=== PATIENT | male | born 1975 | race Two or more races ===

== ENCOUNTER 2020-08-02 08:46 | Outpatient (REF) | payer OTHER, SELFPAY ==
[2020-08-02 10:13] LABS: MANUAL DIFF FLAG NO
[2020-08-02 10:17] LABS: Basophils Percent Auto 0.5 % (0-2); Eosinophils Absolute Auto 0.6 X10*3/uL (0.0-0.4); Eosinophils Percent Auto 8.8 % (0-4); Hematocrit 43.6 % (42-52); Hemoglobin 14.2 g/dl (14.0-18.0); Imm Gran Abs Auto 0.01 X10*3/uL (0.00-0.03); Imm Gran Pct Auto 0.2 % (0.0-0.4); Lymphocytes Absolute Auto 2.1 X10*3/uL (1.2-4.9); Lymphocytes Percent Auto 31.3 % (20-40); Mean Corpuscular HGB Conc 32.6 g/dl (31.0-36.0); Mean Corpuscular Hemoglobin 27.6 pg (27.0-33.0); Mean Corpuscular Volume 84.8 fL (80-98); Mean Platelet Volume 10.5 fL (9.4-12.4); Monocytes Absolute Auto 0.4 X10*3/uL (0.1-1.2); Monocytes Percent Auto 6.4 % (2-11); Neutrophils Absolute Auto 3.5 X10*3/uL (2.0-8.3); Neutrophils Percent Auto 52.8 % (45-73); Platelet Count 278 X10*3/uL (160-400); Red Blood Count 5.14 X10*6/uL (4.60-5.80); Red Cell Distribution Width 12.8 % (11.0-16.0); White Blood Count 6.6 X10*3/uL (4.8-10.8)
[2020-08-02 10:42] LABS: Alanine Aminotransferase 22 U/L (0-40); Albumin Level 4.3 g/dL (3.5-5.0); Alkaline Phosphatase 80 U/L (39-117); Anion Gap 11 (12-20); Aspartate Amino Transferase 19 U/L (5-37); Bilirubin Total 0.6 mg/dL (0.0-1.0); Blood Urea Nitrogen 17 mg/dL (9-16); Calcium 9.3 mg/dL (8.4-10.2); Carbon Dioxide 29 mmol/L (22-29); Chloride 104 mmol/L (96-108); Cholesterol 208 mg/dL; Estimated Glomerular Filt Rate > 60; Glucose Fasting 98 mg/dL (60-99); HDL Cholesterol 45 mg/dL; LDL Cholesterol Calculated 139 mg/dl; Potassium 4.1 mmol/L (3.3-5.1); Sodium 140 mmol/L (135-145); Total Protein 7.5 g/dL (6.5-8.0); Triglycerides 120 mg/dL
[2020-08-02 10:53] LABS: Thyroid Stimulating Hormone 1.23 uIU/mL (0.32-4.0)
[2020-08-05 14:17] LABS: Vitamin D 25-OH, D2 <4 ng/mL; Vitamin D 25-OH, D3 15 ng/mL; Vitamin D 25-OH, Total 15 ng/mL (30-100)
== END 2020-08-02 08:47 | disposition home or self-care (01) ==
LOC: HO.LAB 08:46
PROVIDERS: PCP Internal Medicine; Visit Provider Internal Medicine
DX: D64.9 Anemia, unspecified (principal); E66.3 Overweight; E78.5 Hyperlipidemia, unspecified; E55.9 Vitamin D deficiency, unspecified
CPT/HCPCS: 36415; 80053; 80061; 82306; 84443; 85025

== ENCOUNTER 2020-12-25 11:11 | Outpatient (REF) | payer OTHER, SELFPAY ==
[2020-12-25 13:21] LABS: Appearance Urine CLEAR; Color Urine YELLOW; Glucose Urine UA NEG (NEG); Leukocyte Esterase Urine NEG (NEG); Nitrite Urine NEG (NEG); Specific Gravity - Urine 1.025 (1.005-1.025); Urine Blood NEG (NEG); Urine Ketones NEG (NEG); Urine Protein NEG (NEG-TRACE)
== END 2020-12-25 11:12 | disposition home or self-care (01) ==
LOC: HO.LAB 11:11
PROVIDERS: PCP Internal Medicine; Visit Provider Physician Assistant
DX: R31.9 Hematuria, unspecified (principal)
CPT/HCPCS: 81003

== ENCOUNTER 2021-05-14 23:48 | Emergency (ER) | payer OTHER, SELFPAY ==
--- NOTE | ~2021-05-14 | XR_ITS ---
EXAMINATION: XR HAND, RIGHT CLINICAL INFORMATION: Injury COMPARISON: None TECHNIQUE: Four views of the right hand. FINDINGS: The bones and soft tissues are normal. No fracture. Alignment is anatomic. Joint spaces are maintained. No erosions or soft tissue calcifications. XR/XR hand RT min 3V IMPRESSION: Normal right hand.
[2021-05-14 23:53] VITALS: BP 146/85; PULSE 66; RESP 18; TEMP 36.5; O2SAT 97; BMI 32.5
--- NOTE | 2021-05-15 00:32 | ED_ITS ---
HPI - Extremity Problem General Chief complaint: Extremity Injury, Upper Stated complaint: hand pain? Time Seen by Provider: 05/15/21 00:32 Source: patient Mode of arrival: ambulatory Limitations: no limitations History of Present Illness HPI Narrative: This is a 46-year-old male presenting to the emergency department with complaints of right hand pain. Patient tells me that 4 days ago he was cutting wood he got a sliver would into the webspace between his 1st and 2nd digit. Patient tells me that this liver avoid out however since then it has been swelling. He tells me is having a hard time making a fist on his right hand. And hurts to do opposition of right fingers. He does not feel like there is a foreign body in there. He denies chest pain, shortness of breath, nausea, vomiting, fevers, chills. Patient is right-hand dominant. MD Complaint: joint swelling and joint pain Onset (ago): day(s) (4) Pain Consistency: constant Location: right Radiation: none Relieving factors: nothing Exacerbating factors: range of motion Associated symptoms: denies other symptoms Related Data Home Medications Medication Instructions Recorded Confirmed hydroxyzine pamoate 50 mg capsule 50 mg PO BID PRN 06/20/20 09/21/20 sertraline 100 mg tablet 100 mg PO DAILY 06/20/20 09/21/20 Previous Rx's Medication Instructions Recorded albuterol sulfate 90 mcg/actuation 2 puff INHALATION Q6H PRN 30 Days 06/20/20 aerosol inhaler (ProAir HFA) #6.7 g ibuprofen 800 mg tablet 800 mg PO Q8H PRN 30 Days #90 tab 09/03/20 cholecalciferol (vitamin D3) 50 50 mcg PO DAILY 90 Days #90 cap 09/21/20 mcg (2,000 unit) capsule phenazopyridine 200 mg tablet 200 mg PO TID 3 Days #9 tab 12/26/20 (Pyridium) cephalexin 500 mg tablet 500 mg PO Q6H 10 Days #40 tab 05/15/21 doxycycline hyclate 100 mg capsule 100 mg PO BID 10 Days #20 cap 05/15/21 Allergies Allergy/AdvReac Type Severity Reaction Status Date / Time No Known Allergies Allergy Verified 05/14/21 23:53 Review of Systems Review of Systems: Constitutional : No Weight loss, No Fever, No Chills, No Fatigue, No Malaise ENT/Mouth : No sore throat, No Rhinorrhea Eyes: No Eye Pain, No Swelling, No Redness Cardiovascular : No Chest Pain, No SOB, No Dyspnea on Exertion, No Orthopnea, No Edema, No Palpitations Respiratory : No Cough, No Sputum, No Wheezing Gastrointestinal : No Nausea, No Vomiting, No Diarrhea, No Constipation, No abdo john Pain, No Hematochezia, No Melena Genitourinary : No Dysuria, No Urinary Frequency, No Hematuria, Musculoskeletal : + joint pain, No Myalgias, + Joint Swelling Skin : No Skin Lesions, No rash Neuro : No Weakness, No Numbness, No Dizziness, No Headache Psych : No Anxiety/Panic, No Depression All other systems reviewed and are negative Yes all other systems are reviewed and are negative [facility] Past Medical History Attestation statement: The following information was validated with the patient. Source: old records reviewed and nursing notes reviewed Medical History Depression with anxiety Hypovitaminosis D Mild asthma Overweight (BMI 25.0-29.9) Surgical History No pertinent past surgical history Family History Family History Father Prostate cancer Mother Asthma Social History Social History Housing: Apartment Alcohol intake: former Patient Tobacco Use Status: Former Tobacco user Tobacco use type: Cigarette e-Cigarette/Vaping Use: Never Used Second Hand Smoke Exposure: No Advance Directives: No service: No Current occupational status: employed Current occupational exposures/hazards: No Physical Exam Vital Signs: Vital Signs: Last Vital Signs Temp 97.7 F 05/14/21 23:53 Pulse 66 05/14/21 23:53 Resp 18 05/14/21 23:53 BP 146/85 H 05/14/21 23:53 Pulse Ox 97 05/14/21 23:53 BMI result Body Mass Index 32.5 VSS Appearance: Alert.? Oriented X3.? No acute distress.? Head: Normocephalic, atraumatic, no step-offs or deformities Eyes: Pupils equal, round and reactive to light.? ENT: Pharynx normal.? Neck: Normal inspection.? Neck supple.? CVS: Normal heart rate and rhythm.? Pulses normal.? Respiratory: No respiratory distress.? Breath sounds normal.? Abdomen: Soft and nontender.? Skin: Skin warm and dry.? Normal skin color.? Normal skin turgor.? Extremities: No lower extremity edema.? No calf ttp. 5/5 strength to bilateral upper and lower extremities normal range of motion to bilateral wrist. 2+ equal bilateral radial pulses. + pain with range of motion of right fingers, patient cannot do opposition without pain on right side. Erythema and calor noted to the right 1st web space. Unable to palpate a foreign body within the right 1st webspace. Back: No midline tenderness, no C-spine tenderness, full range of motion, no CVA tenderness bilaterally Neuro: Oriented X 3.? No motor deficit.? No sensory deficit. CN 2-12 intact Course Reevaluation(s) Reevaluation #1: X-ray of the right hand within normal limits. Patient will be discharged home on antibiotics. Advised to follow-up with hand surgery. At this time I feel comfortable discharge home. Advised return with new or worsening symptoms. Time: 01:20 Reevaluation #2: Will give tetanus shot. X-ray within normal limits. call to schedule an appoint with Dr. Turner. Comfortable discharge home Time: 01:26 MDM - Extremity (Nontraumatic) MDM Narrative Medical decision making narrative: 0039 46 yo m presents w/ swelling to the right 1st webspace status post getting a sliver of wood into his hand. Patient removed this liver however since then pain and swelling has been present. Physical examination significant for pain with opposition of fingers on right hand. There is also erythema, swelling and calor consistent with cellulitis between the 1st and 2nd digits webspace. No evidence signs of tenosynovitis. Physical examination consistent with cellulitis. Plan at this time is to obtain an x-ray to rule out foreign bodies. Medical Records Attestation: I reviewed the patient's medical records. Lab Data Attestation: I reviewed the patient's lab results. Critical Care Time Critical Care Time Critical Care Time: No Discharge Plan Discharge Clinical Impression: Cellulitis Patient Disposition: Home, Self-Care Instructions: Cellulitis (ED), Warm Compress or Soak (ED) Additional Instructions: Take your medications as prescribed. If you were prescribed antibiotics today, it is important that you take your medication to their entirety, do not skip any doses, do not finish them early. Follow-up with your primary care provider this week. Follow-up with hand surgeon if symptoms do not improve within 3-4 days or if symptoms worsen. Return to the emergency department with new or worsening symptoms. Such as fevers, chills, chest pain, shortness of breath, nausea, vomiting, dizziness, headache, vision changes, lethargy In case of emergency call 911 Prescriptions: New doxycycline hyclate 100 mg capsule 100 mg PO BID 10 Days Qty: 20 0RF cephalexin 500 mg tablet 500 mg PO Q6H 10 Days Qty: 40 0RF No Action ibuprofen 800 mg tablet 800 mg PO Q8H PRN (Reason: pain) 30 Days Qty: 90 1RF phenazopyridine [Pyridium] 200 mg tablet 200 mg PO TID 3 Days Qty: 9 0RF hydroxyzine pamoate 50 mg capsule 50 mg PO BID PRN0RF sertraline 100 mg tablet 100 mg PO DAILY 0RF albuterol sulfate [ProAir HFA] 90 mcg/actuation HFA aerosol inhaler 2 puff inhalation Q6H PRN (Reason: shortness of breath or wheezing) 30 Days Qty: 6.7 6RF cholecalciferol (vitamin D3) 50 mcg (2,000 unit) capsule 50 mcg PO DAILY 90 Days Qty: 90 3RF Referrals: Sania Turner MD [Physician] - 2 days Physician,Unknown J [Primary Care Provider] - 2 days Stand Alone Forms: Work/School Release
[2021-05-15] MEDS: Diphth,Pertus(ACell),Tet Adult 0.5 ML SYRINGE IM (01:52)
== END 2021-05-15 01:55 | disposition home or self-care (01) ==
PROVIDERS: Emergency Provider Internal Medicine
DX: L03.011 Cellulitis of right finger (principal); M25.541 Pain in joints of right hand
CPT/HCPCS: 73130; 90471; 90715; 99283; 99284

== ENCOUNTER 2021-06-05 09:01 | Outpatient (REF) | payer OTHER, SELFPAY ==
[2021-06-05 09:23] LABS: MANUAL DIFF FLAG NO
--- NOTE | 2021-06-05 09:24 | ECG_ITS ---
Test Reason : CHEST PAIN Blood Pressure : / mmHG Vent. Rate : 051 BPM Atrial Rate : 051 BPM P-R Int : 178 ms QRS Dur : 090 ms QT Int : 450 ms P-R-T Axes : 046 044 048 degrees QTc Int : 414 ms Sinus bradycardia Minimal voltage criteria for LVH, may be normal variant ( Sokolow-Desir ) Borderline ECG No previous ECGs available Referred By: Madalyn Oliva Electronically Signed By:RICK MILLAN
[2021-06-05 09:32] LABS: Basophils Percent Auto 0.3 % (0-2); Eosinophils Absolute Auto 0.3 X10*3/uL (0.0-0.4); Eosinophils Percent Auto 3.8 % (0-4); Hematocrit 45.3 % (42.0-52.0); Hemoglobin 14.4 g/dl (14.0-18.0); Imm Gran Abs Auto 0.01 X10*3/uL (0.00-0.03); Imm Gran Pct Auto 0.1 % (0.0-0.4); Lymphocytes Absolute Auto 2.5 X10*3/uL (1.2-4.9); Lymphocytes Percent Auto 35.9 % (20-40); Mean Corpuscular HGB Conc 31.8 g/dl (31.0-36.0); Mean Corpuscular Hemoglobin 27.3 pg (27.0-33.0); Mean Platelet Volume 9.9 fL (9.4-12.4); Monocytes Absolute Auto 0.4 X10*3/uL (0.1-1.2); Monocytes Percent Auto 5.5 % (2-11); Neutrophils Absolute Auto 3.8 x10*3/uL (2.0-8.3); Neutrophils Percent Auto 54.4 % (45-73); Platelet Count 289 X10*3/uL (160-400); Red Blood Count 5.27 X10*6/uL (4.60-5.80); Red Cell Distribution Width 12.6 % (11.0-16.0); White Blood Count 6.9 X10*3/uL (4.8-10.8)
[2021-06-05 09:56] LABS: Alanine Aminotransferase 38 U/L (0-40); Albumin Level 4.2 g/dL (3.5-5.0); Alkaline Phosphatase 78 U/L (39-117); Anion Gap 11 (12-20); Aspartate Amino Transferase 20 U/L (5-37); Bilirubin Total 0.6 mg/dL (0.0-1.0); Blood Urea Nitrogen 16 mg/dL (9-16); Calcium 9.5 mg/dL (8.4-10.2); Carbon Dioxide 30 mmol/L (22-29); Chloride 107 mmol/L (96-108); Cholesterol 178 mg/dL; Estimated Glomerular Filt Rate > 60; Glucose Fasting 103 mg/dL (60-99); HDL Cholesterol 40 mg/dL; LDL Cholesterol Calculated 120 mg/dl; Potassium 4.2 mmol/L (3.3-5.1); Sodium 144 mmol/L (135-145); Total Protein 7.5 g/dL (6.5-8.0); Triglycerides 91 mg/dL
[2021-06-05 10:20] LABS: Thyroid Stimulating Hormone 2.17 uIU/mL (0.32-4.0); Vitamin D 25-OH Total 13.3 ng/mL (>30)
== END 2021-06-05 09:02 | disposition home or self-care (01) ==
LOC: HO.LAB 09:01
PROVIDERS: PCP Internal Medicine; Visit Provider Internal Medicine
DX: Z00.00 Encounter for general adult medical examination without abnormal findings (principal); R07.9 Chest pain, unspecified; J45.30 Mild persistent asthma, uncomplicated; D64.9 Anemia, unspecified; E78.5 Hyperlipidemia, unspecified; E66.9 Obesity, unspecified; E55.9 Vitamin D deficiency, unspecified
CPT/HCPCS: 36415; 80053; 80061; 82306; 84443; 85025; 93005

== ENCOUNTER 2022-04-10 18:32 | Emergency (ER) | payer OTHER, SELFPAY ==
--- NOTE | ~2022-04-10 | XR_ITS ---
EXAMINATION: XR ELBOW, RIGHT CLINICAL INFORMATION: Pain, injury COMPARISON: None TECHNIQUE: AP, lateral, and oblique views of the right elbow. FINDINGS: The bones and soft tissues are normal. No fracture or joint effusion. Alignment is anatomic. Joint spaces are maintained. XR/XR elbow RT 2V IMPRESSION: Normal right elbow.
--- NOTE | 2022-04-10 19:00 | ED.UPPEXIN ---
HPI - Extremity Injury (Upper) General Chief Complaint: Extremity Problem Stated Complaint: Right shoulder inj Time Seen by Provider: 04/10/22 21:57 Related Data Previous Rx's Medication Instructions Recorded albuterol sulfate 90 mcg/actuation 2 puff inhalation Q6H PRN 06/17/21 aerosol inhaler (ProAir HFA) shortness of breath or wheezing 30 days #6.7 grams cholecalciferol (vitamin D3) 50 50 mcg PO DAILY 90 days #90 caps 10/10/21 mcg (2,000 unit) capsule sertraline 100 mg tablet 100 mg PO DAILY 90 days #90 tabs 10/10/21 hydroxyzine pamoate 50 mg capsule 50 mg PO BID PRN anxiety 30 days 01/09/22 #60 caps ibuprofen 800 mg tablet 800 mg PO Q8H PRN pain 30 days #90 03/18/22 tabs cyclobenzaprine 10 mg tablet 10 mg PO TID PRN muscle spasm #20 04/10/22 tabs ibuprofen 800 mg tablet 800 mg PO TID PRN pain #30 tabs 04/10/22 Allergies Allergy/AdvReac Type Severity Reaction Status Date / Time No Known Allergies Allergy Verified 10/10/21 16:10 [facility] Past Medical History Medical History Chest pain Depression with anxiety Encounter for physical examination Hypovitaminosis D Mild asthma Mild recurrent major depression Obesity (BMI 30.0-34.9) Overweight (BMI 25.0-29.9) Surgical History No pertinent past surgical history Family History Family History Father Prostate cancer Mother Asthma Social History Social History Housing: Apartment Alcohol intake: former Patient Tobacco Use Status: Former Tobacco user Tobacco use type: Cigarette e-Cigarette/Vaping Use: Never Used Second Hand Smoke Exposure: No Advance Directives: No Advance Directives Information Provided: Yes service: No Current occupational status: unemployed Cognitive needs: No Hearing needs: No Vision needs: No Physical Exam Vital Signs: Vital Signs: Last Vital Signs Temp 97.9 F 04/10/22 19:01 Pulse 71 04/10/22 19:01 Resp 18 04/10/22 19:01 BP 132/76 04/10/22 19:01 Pulse Ox 96 04/10/22 19:01 O2 Del Method 04/10/22 19:01 BMI result Body Mass Index 33.2 Course Course Course Narrative: This is rapid medical exam. Deferred HPI, ROS, PE to primary provider. 47-year-old male healthy right handed with history of anxiety, depression, asthma presents with right elbow pain x several days. Will get x-rays. VSS. Medications Administered Discontinued Medications Generic Name Dose Route Start Last Admin Trade Name Freq PRN Reason Stop Dose Admin Ibuprofen 800 mg 04/10/22 22:04 04/10/22 22:33 Ibuprofen 800 Mg Tablet PO 04/10/22 22:05 800 mg ONCE ONE Administration Discharge Plan Discharge Clinical Impression: Strain of elbow, right Patient Disposition: Home, Self-Care Instructions: Muscle Strain (ED), Cold Compress or Soak (ED) Additional Instructions: For follow-up call 9 year spine at [facility]. [phone] Prescriptions: New ibuprofen 800 mg tablet 800 mg PO TID PRN (Reason: pain) Qty: 30 0RF cyclobenzaprine 10 mg tablet 10 mg PO TID PRN (Reason: muscle spasm) Qty: 20 0RF No Action albuterol sulfate [ProAir HFA] 90 mcg/actuation HFA aerosol inhaler 2 puff inhalation Q6H PRN (Reason: shortness of breath or wheezing) 30 Days Qty: 6.7 6RF hydroxyzine pamoate 50 mg capsule 50 mg PO BID PRN (Reason: anxiety) 30 Days Qty: 60 2RF ibuprofen 800 mg tablet 800 mg PO Q8H PRN (Reason: pain) 30 Days Qty: 90 0RF cholecalciferol (vitamin D3) 50 mcg (2,000 unit) capsule 50 mcg PO DAILY 90 Days Qty: 90 3RF sertraline 100 mg tablet 100 mg PO DAILY 90 Days Qty: 90 1RF Stand Alone Forms: Work/School Release Interventions: ED Discharge Assessment Last Done: 04/10/22 23:00 Discharge Date/Time: 04/10/22 23:01
[2022-04-10 19:01] VITALS: BP 132/76; PULSE 71; RESP 18; TEMP 36.6; O2SAT 96; BMI 33.2
--- NOTE | 2022-04-10 22:05 | ED_ITS ---
HPI - Extremity Problem General Chief complaint: Extremity Problem Stated complaint: Right shoulder inj Time Seen by Provider: 04/10/22 21:57 Source: patient History of Present Illness HPI Narrative: Patient complaining of right elbow and forearm pain after a slip and fall 3 days ago. He landed on outstretched hand. No significant hand or wrist pain, but some soreness. More painful with movement of the elbow. He is having difficulty working because of the pain. No other injuries or complaints. No weakness numbness or paresthesias. He does have full range of motion although it is with discomfort Related Data Previous Rx's Medication Instructions Recorded albuterol sulfate 90 mcg/actuation 2 puff inhalation Q6H PRN 06/17/21 aerosol inhaler (ProAir HFA) shortness of breath or wheezing 30 days #6.7 grams cholecalciferol (vitamin D3) 50 50 mcg PO DAILY 90 days #90 caps 10/10/21 mcg (2,000 unit) capsule sertraline 100 mg tablet 100 mg PO DAILY 90 days #90 tabs 10/10/21 hydroxyzine pamoate 50 mg capsule 50 mg PO BID PRN anxiety 30 days 01/09/22 #60 caps ibuprofen 800 mg tablet 800 mg PO Q8H PRN pain 30 days #90 03/18/22 tabs cyclobenzaprine 10 mg tablet 10 mg PO TID PRN muscle spasm #20 04/10/22 tabs ibuprofen 800 mg tablet 800 mg PO TID PRN pain #30 tabs 04/10/22 Allergies Allergy/AdvReac Type Severity Reaction Status Date / Time No Known Allergies Allergy Verified 10/10/21 16:10 Review of Systems Review of Systems: Review of systems otherwise negative [facility] Past Medical History Medical History Chest pain Depression with anxiety Encounter for physical examination Hypovitaminosis D Mild asthma Mild recurrent major depression Obesity (BMI 30.0-34.9) Overweight (BMI 25.0-29.9) Surgical History No pertinent past surgical history Family History Family History Father Prostate cancer Mother Asthma Social History Social History Housing: Apartment Alcohol intake: former Patient Tobacco Use Status: Former Tobacco user Tobacco use type: Cigarette e-Cigarette/Vaping Use: Never Used Second Hand Smoke Exposure: No Advance Directives: No Advance Directives Information Provided: Yes service: No Current occupational status: unemployed Cognitive needs: No Hearing needs: No Vision needs: No Physical Exam Vital Signs: Vital Signs: Last Vital Signs Temp 97.9 F 04/10/22 19:01 Pulse 71 04/10/22 19:01 Resp 18 04/10/22 19:01 BP 132/76 04/10/22 19:01 Pulse Ox 96 04/10/22 19:01 O2 Del Method 04/10/22 19:01 BMI result Body Mass Index 33.2 Const: Other: Awake alert. No acute distress. Ambulatory without difficulty Neck: Other: Full range of motion Skin: Other: Warm and dry. No lacerations abrasions or ecchymosis Neuro: Other: Sensation and motor is intact in the right arm Extrem: Other: Right hand with minimal dorsal tenderness. No swelling crepitus or deformity. Right forearm with mild tenderness over lateral epicondyle without crepitus or deformity or swelling. Elbow with full range of motion although with some discomfort. No crepitus deformity noted in elbow or arm. Remainder of musculoskeletal exam is grossly unremarkable Medical Decision Making Medical Decision Making MDM Narrative: Differential diagnosis is strain, contusion, fracture. 22:07. X-ray of elbow shows no evidence of fracture. Results explained to patient. Patient stable for discharge home. Work note, physical therapy follow-up. Discharge Plan Discharge Clinical Impression: Strain of elbow, right Patient Disposition: Home, Self-Care Instructions: Muscle Strain (ED), Cold Compress or Soak (ED) Additional Instructions: For follow-up call 9 year spine at [facility]. [phone] Prescriptions: New ibuprofen 800 mg tablet 800 mg PO TID PRN (Reason: pain) Qty: 30 0RF cyclobenzaprine 10 mg tablet 10 mg PO TID PRN (Reason: muscle spasm) Qty: 20 0RF No Action albuterol sulfate [ProAir HFA] 90 mcg/actuation HFA aerosol inhaler 2 puff inhalation Q6H PRN (Reason: shortness of breath or wheezing) 30 Days Qty: 6.7 6RF hydroxyzine pamoate 50 mg capsule 50 mg PO BID PRN (Reason: anxiety) 30 Days Qty: 60 2RF ibuprofen 800 mg tablet 800 mg PO Q8H PRN (Reason: pain) 30 Days Qty: 90 0RF cholecalciferol (vitamin D3) 50 mcg (2,000 unit) capsule 50 mcg PO DAILY 90 Days Qty: 90 3RF sertraline 100 mg tablet 100 mg PO DAILY 90 Days Qty: 90 1RF
[2022-04-10] MEDS: Ibuprofen 800 MG TABLET PO (22:33)
--- NOTE | 2022-04-10 23:00 | PC.NURSE ---
pt medicated per mar- discharge information given to pt with parts interpreter at bedside
== END 2022-04-10 23:01 | disposition home or self-care (01) ==
PROVIDERS: Emergency Provider Emergency Medicine; PCP Internal Medicine
DX: S53.401A Unspecified sprain of right elbow, initial encounter (principal); M79.601 Pain in right arm; X58.XXXA Exposure to other specified factors, initial encounter; Y93.9 Activity, unspecified; Y92.9 Unspecified place or not applicable; Y99.9 Unspecified external cause status
CPT/HCPCS: 73070; 99283

== ENCOUNTER 2022-05-02 12:25 | Emergency (ER) | payer OTHER, SELFPAY ==
--- NOTE | 2022-05-02 12:30 | ECG_ITS ---
Test Reason : chest pain Blood Pressure : / mmHG Vent. Rate : 101 BPM Atrial Rate : 101 BPM P-R Int : 170 ms QRS Dur : 086 ms QT Int : 364 ms P-R-T Axes : 045 028 050 degrees QTc Int : 471 ms Sinus tachycardia Otherwise normal ECG When compared with ECG of 05-JUN-2021 09:26, Vent. rate has increased BY 50 BPM QT has lengthened Referred By: Generic ED Physician Electronically Signed By:RICK MILLAN
--- NOTE | 2022-05-02 13:19 | ED.CHESTPAIN ---
HPI - Chest Pain General Chief Complaint: General Medical <Anai Vo CNP - Last Filed: 05/02/22 13:22> Stated Complaint: chest pain headache <Anai Vo CNP - Last Filed: 05/02/22 13:22> Time Seen by Provider: 05/02/22 22:42 <Anai Vo CNP - Last Filed: 05/02/22 13:22> Source: patient <Keith Plaza MD - Last Filed: 05/02/22 23:09> Mode of arrival: ambulatory <Keith Plaza MD - Last Filed: 05/02/22 23:09> Limitations: no limitations <Keith Plaza MD - Last Filed: 05/02/22 23:09> History of Present Illness HPI narrative: Patient's complaining of chest left-sided for last few days sharp in character headache was seen at dentist his blood pressure was 155 systolic with strong family history of hypertension for the last month patient saw his PCP his blood pressure was normal no shortness of breath no diaphoresis <Keith Plaza MD - Last Filed: 05/02/22 23:09> Related Data Home Medications: Previous Rx's Medication Instructions Recorded albuterol sulfate 90 mcg/actuation 2 puff inhalation Q6H PRN 06/17/21 aerosol inhaler (ProAir HFA) shortness of breath or wheezing 30 days #6.7 grams cholecalciferol (vitamin D3) 50 50 mcg PO DAILY 90 days #90 caps 10/10/21 mcg (2,000 unit) capsule hydroxyzine pamoate 50 mg capsule 50 mg PO BID PRN anxiety 30 days 01/09/22 #60 caps ibuprofen 800 mg tablet 800 mg PO Q8H PRN pain 30 days #90 03/18/22 tabs cyclobenzaprine 10 mg tablet 10 mg PO TID PRN muscle spasm #20 04/10/22 tabs ibuprofen 800 mg tablet 800 mg PO TID PRN pain #30 tabs 04/10/22 sertraline 100 mg tablet 100 mg PO DAILY 90 days #90 tabs 04/24/22 <Anai Vo CNP - Last Filed: 05/02/22 13:22> Allergies/Adverse Reactions: Allergies Allergy/AdvReac Type Severity Reaction Status Date / Time No Known Allergies Allergy Verified 10/10/21 16:10 <Anai Vo CNP - Last Filed: 05/02/22 13:22> Review of Systems Review of Systems: Yes all other systems are reviewed and are negative <Keith Plaza MD - Last Filed: 05/02/22 23:09> [facility] Past Medical History Medical History: Medical History Chest pain Depression with anxiety Encounter for physical examination Hypovitaminosis D Mild asthma Mild recurrent major depression Obesity (BMI 30.0-34.9) Overweight (BMI 25.0-29.9) <Anai Vo CNP - Last Filed: 05/02/22 13:22> Surgical History: Surgical History No pertinent past surgical history <Anai Vo CNP - Last Filed: 05/02/22 13:22> Family History Family History: Family History Father Prostate cancer Mother Asthma <Anai Vo CNP - Last Filed: 05/02/22 13:22> Social History Social History: Social History Housing: Apartment Alcohol intake: former Patient Tobacco Use Status: Former Tobacco user Tobacco use type: Cigarette e-Cigarette/Vaping Use: Never Used Second Hand Smoke Exposure: No Advance Directives: No Advance Directives Information Provided: Yes service: No Current occupational status: unemployed Cognitive needs: No Hearing needs: No Vision needs: No <Anai Vo CNP - Last Filed: 05/02/22 13:22> Physical Exam Vital Signs: Vital Signs: Last Vital Signs Temp 98.7 F 05/02/22 21:08 Pulse 67 05/02/22 21:08 Resp 12 05/02/22 21:08 BP 135/93 H 05/02/22 21:08 Pulse Ox 96 05/02/22 21:08 O2 Del Method 05/02/22 21:08 BMI result Body Mass Index 33.4 <Anai Vo CNP - Last Filed: 05/02/22 13:22> Vital Signs: Last Vital Signs Temp 98.7 F 05/02/22 21:08 Pulse 67 05/02/22 21:08 Resp 12 05/02/22 21:08 BP 135/93 H 05/02/22 21:08 Pulse Ox 96 05/02/22 21:08 O2 Del Method 05/02/22 21:08 BMI result Body Mass Index 33.4 <Keith Plaza MD - Last Filed: 05/02/22 23:09> Appearance: Alert. Oriented X3. No acute distress. Eyes: PERRLA, No Nystagmus ENT: Pharynx normal. Oral Mucosa moist Neck: Normal inspection. Neck supple. CVS: Normal heart rate and rhythm. Pulses normal. Respiratory: No respiratory distress. Equal air entry bilateral, no wheezing/rales/rhonchi Abdomen: Soft and nontender. Bowel sounds are present, no mass palpable, no CVA tenderness Skin: Skin warm and dry. Normal skin color. Normal skin turgor. Extremities: No lower extremity edema. No calf tenderness Neuro: Oriented X 3. No motor deficit. No sensory deficit.No cerebellar signs , cranial nerves II-XII intact <Keith Plaza MD - Last Filed: 05/02/22 23:09> Course Course Course Narrative: This is an RME: Additional HPI, ROS, PE not included below will be deferred to primary provider. Patient is a 47-year-old male presents to the emergency department for evaluation of chest pain, described as squeezing over left chest intermittently lasting hours before self resolving, intermittent headache, and concern about high blood pressure. Onset of symptoms x 1 week. Yesterday at dentist blood pressure systolic was 155. He has no past history of HTN, not taking any medications. Denies URI symptoms. Plan: labs, EKG, urinalysis, viral testing <Anai Vo CNP - Last Filed: 05/02/22 13:22> Medical Decision Making Medical Decision Making MDM Narrative: Patient increased anxiety repeat blood pressure in the ER was 149/94 with pulse rate of 63 patient might have about and hypertension advised to decrease salt in your exercise and follow with PCP patient's chest pain was atypical sharp in character high sensitive troponin negative <Keith Plaza MD - Last Filed: 05/02/22 23:09> Lab Data MDM Lab Attestation statement: I reviewed the patient's lab results. <Keith Plaza MD - Last Filed: 05/02/22 23:09> Result Diagrams: 05/02/22 14:21 05/02/22 14:21 <Anai Vo CNP - Last Filed: 05/02/22 13:22> Labs: Lab Results 05/02/22 05/02/22 05/02/22 Range/Units 14:21 14:21 14:21 WBC 7.0 (4.8-10.8) X10*3/uL RBC 5.03 (4.60-5.80) X10*6/uL Hgb 13.7 L (14.0-18.0) g/dl Hct 42.1 (42.0-52.0) % MCV 83.7 (80.0-98.0) fL MCH 27.2 (27.0-33.0) pg MCHC 32.5 (31.0-36.0) g/dl RDW 13.2 (11.0-16.0) % Plt Count 281 (160-400) X10*3/uL MPV 9.7 (9.4-12.4) fL Immature Gran % (Auto) 0.3 (0.0-0.4) % Neut % (Auto) 60.0 (45-73) % Lymph % (Auto) 30.5 (20-40) % [place] % (Auto) 5.8 (2-11) % Eos % (Auto) 3.0 (0-4) % Baso % (Auto) 0.4 (0-2) % Lymph # (Auto) 2.2 (1.2-4.9) X10*3/uL [place] # (Auto) 0.4 (0.1-1.2) X10*3/uL Eos # (Auto) 0.2 (0.0-0.4) X10*3/uL Baso # (Auto) 0.0 (0.0-0.2) X10*3/uL Abs Immat Gran (auto) 0.02 (0.00-0.03) X10*3/uL Absolute Neuts (auto) 4.2 (2.0-8.3) x10*3/uL Absolute Nucleated RBC 0.000 (0.0-0.012) X10*3/uL Nucleated RBC % (auto) 0.0 (0.0-0.2) /100WBC Sodium 145 (135-145) mmol/L Potassium 4.1 (3.3-5.1) mmol/L Chloride 108 (96-108) mmol/L Carbon Dioxide 31 H (22-29) mmol/L Anion Gap 10 L (12-20) BUN 18 H (9-16) mg/dL Creatinine 1.05 (0.5-1.4) mg/dL Estim Creat Clear Calc 99.5 Estimated GFR > 60 Random Glucose 86 (60-115) mg/dL Calcium 9.3 (8.4-10.2) mg/dL Total Bilirubin 0.7 (0.0-1.0) mg/dL AST 17 (5-37) U/L ALT 16 (0-40) U/L Alkaline Phosphatase 76 (39-117) U/L Troponin I High Sens (<3.5-35.0) ng/L B-Natriuretic Peptide < 10 (<100) pg/mL Total Protein 7.6 (6.5-8.0) g/dL Albumin 4.2 (3.5-5.0) g/dL Urine Color Urine Appearance Urine pH (5.0-9.0) Ur Specific [place] (1.005-1.025) Urine Protein (Neg-Trace) mg/dL Urine Glucose (UA) (Negative) mg/dL Urine Ketones (Negative) mg/dL Urine Blood (Negative) Urine Nitrite (Negative) Ur Leukocyte Esterase (Negative) Urine RBC (0-2) /HPF Urine WBC (0-5) /HPF Ur Squamous Epith Cells (0-2) /HPF Urine Bacteria (None Seen) Hyaline Casts (0-2) /LPF COVID-19 (CHANG) (Negative) COVID-19 Clin Com Influenza Type A (JIMENEZ) (Negative) Influenza Type B (JIMENEZ) (Negative) Influenza A & B Note 05/02/22 05/02/22 05/02/22 Range/Units 14:21 14:21 14:21 WBC (4.8-10.8) X10*3/uL RBC (4.60-5.80) X10*6/uL Hgb (14.0-18.0) g/dl Hct (42.0-52.0) % MCV (80.0-98.0) fL MCH (27.0-33.0) pg MCHC (31.0-36.0) g/dl RDW (11.0-16.0) % Plt Count (160-400) X10*3/uL MPV (9.4-12.4) fL Immature Gran % (Auto) (0.0-0.4) % Neut % (Auto) (45-73) % Lymph % (Auto) (20-40) % [place] % (Auto) (2-11) % Eos % (Auto) (0-4) % Baso % (Auto) (0-2) % Lymph # (Auto) (1.2-4.9) X10*3/uL [place] # (Auto) (0.1-1.2) X10*3/uL Eos # (Auto) (0.0-0.4) X10*3/uL Baso # (Auto) (0.0-0.2) X10*3/uL Abs Immat Gran (auto) (0.00-0.03) X10*3/uL Absolute Neuts (auto) (2.0-8.3) x10*3/uL Absolute Nucleated RBC (0.0-0.012) X10*3/uL Nucleated RBC % (auto) (0.0-0.2) /100WBC Sodium (135-145) mmol/L Potassium (3.3-5.1) mmol/L Chloride (96-108) mmol/L Carbon Dioxide (22-29) mmol/L Anion Gap (12-20) BUN (9-16) mg/dL Creatinine (0.5-1.4) mg/dL Estim Creat Clear Calc Estimated GFR Random Glucose (60-115) mg/dL Calcium (8.4-10.2) mg/dL Total Bilirubin (0.0-1.0) mg/dL AST (5-37) U/L ALT (0-40) U/L Alkaline Phosphatase (39-117) U/L Troponin I High Sens 8.3 (<3.5-35.0) ng/L B-Natriuretic Peptide (<100) pg/mL Total Protein (6.5-8.0) g/dL Albumin (3.5-5.0) g/dL Urine Color Urine Appearance Urine pH (5.0-9.0) Ur Specific [place] (1.005-1.025) Urine Protein (Neg-Trace) mg/dL Urine Glucose (UA) (Negative) mg/dL Urine Ketones (Negative) mg/dL Urine Blood (Negative) Urine Nitrite (Negative) Ur Leukocyte Esterase (Negative) Urine RBC (0-2) /HPF Urine WBC (0-5) /HPF Ur Squamous Epith Cells (0-2) /HPF Urine Bacteria (None Seen) Hyaline Casts (0-2) /LPF COVID-19 (CHANG) Negative (Negative) COVID-19 Clin Com See Note Influenza Type A (JIMENEZ) Negative (Negative) Influenza Type B (JIMENEZ) Negative (Negative) Influenza A & B Note See Note 05/02/22 Range/Units 21:15 WBC (4.8-10.8) X10*3/uL RBC (4.60-5.80) X10*6/uL Hgb (14.0-18.0) g/dl Hct (42.0-52.0) % MCV (80.0-98.0) fL MCH (27.0-33.0) pg MCHC (31.0-36.0) g/dl RDW (11.0-16.0) % Plt Count (160-400) X10*3/uL MPV (9.4-12.4) fL Immature Gran % (Auto) (0.0-0.4) % Neut % (Auto) (45-73) % Lymph % (Auto) (20-40) % [place] % (Auto) (2-11) % Eos % (Auto) (0-4) % Baso % (Auto) (0-2) % Lymph # (Auto) (1.2-4.9) X10*3/uL [place] # (Auto) (0.1-1.2) X10*3/uL Eos # (Auto) (0.0-0.4) X10*3/uL Baso # (Auto) (0.0-0.2) X10*3/uL Abs Immat Gran (auto) (0.00-0.03) X10*3/uL Absolute Neuts (auto) (2.0-8.3) x10*3/uL Absolute Nucleated RBC (0.0-0.012) X10*3/uL Nucleated RBC % (auto) (0.0-0.2) /100WBC Sodium (135-145) mmol/L Potassium (3.3-5.1) mmol/L Chloride (96-108) mmol/L Carbon Dioxide (22-29) mmol/L Anion Gap (12-20) BUN (9-16) mg/dL Creatinine (0.5-1.4) mg/dL Estim Creat Clear Calc Estimated GFR Random Glucose (60-115) mg/dL Calcium (8.4-10.2) mg/dL Total Bilirubin (0.0-1.0) mg/dL AST (5-37) U/L ALT (0-40) U/L Alkaline Phosphatase (39-117) U/L Troponin I High Sens (<3.5-35.0) ng/L B-Natriuretic Peptide (<100) pg/mL Total Protein (6.5-8.0) g/dL Albumin (3.5-5.0) g/dL Urine Color Yellow Urine Appearance Clear Urine pH 7.0 (5.0-9.0) Ur Specific [place] 1.020 (1.005-1.025) Urine Protein Negative (Neg-Trace) mg/dL Urine Glucose (UA) Negative (Negative) mg/dL Urine Ketones Negative (Negative) mg/dL Urine Blood Negative (Negative) Urine Nitrite Negative (Negative) Ur Leukocyte Esterase Trace H (Negative) Urine RBC 0-2 (0-2) /HPF Urine WBC 0-5 (0-5) /HPF Ur Squamous Epith Cells 0-2 (0-2) /HPF Urine Bacteria None Seen (None Seen) Hyaline Casts 0-2 (0-2) /LPF COVID-19 (CHANG) (Negative) COVID-19 Clin Com Influenza Type A (JIMENEZ) (Negative) Influenza Type B (JIMENEZ) (Negative) Influenza A & B Note <Anai Vo, MADELINE - Last Filed: 05/02/22 13:22> Lab Results 05/02/22 05/02/22 05/02/22 Range/Units 14:21 14:21 14:21 WBC 7.0 (4.8-10.8) X10*3/uL RBC 5.03 (4.60-5.80) X10*6/uL Hgb 13.7 L (14.0-18.0) g/dl Hct 42.1 (42.0-52.0) % MCV 83.7 (80.0-98.0) fL MCH 27.2 (27.0-33.0) pg MCHC 32.5 (31.0-36.0) g/dl RDW 13.2 (11.0-16.0) % Plt Count 281 (160-400) X10*3/uL MPV 9.7 (9.4-12.4) fL Immature Gran % (Auto) 0.3 (0.0-0.4) % Neut % (Auto) 60.0 (45-73) % Lymph % (Auto) 30.5 (20-40) % [place] % (Auto) 5.8 (2-11) % Eos % (Auto) 3.0 (0-4) % Baso % (Auto) 0.4 (0-2) % Lymph # (Auto) 2.2 (1.2-4.9) X10*3/uL [place] # (Auto) 0.4 (0.1-1.2) X10*3/uL Eos # (Auto) 0.2 (0.0-0.4) X10*3/uL Baso # (Auto) 0.0 (0.0-0.2) X10*3/uL Abs Immat Gran (auto) 0.02 (0.00-0.03) X10*3/uL Absolute Neuts (auto) 4.2 (2.0-8.3) x10*3/uL Absolute Nucleated RBC 0.000 (0.0-0.012) X10*3/uL Nucleated RBC % (auto) 0.0 (0.0-0.2) /100WBC Sodium 145 (135-145) mmol/L Potassium 4.1 (3.3-5.1) mmol/L Chloride 108 (96-108) mmol/L Carbon Dioxide 31 H (22-29) mmol/L Anion Gap 10 L (12-20) BUN 18 H (9-16) mg/dL Creatinine 1.05 (0.5-1.4) mg/dL Estim Creat Clear Calc 99.5 Estimated GFR > 60 Random Glucose 86 (60-115) mg/dL Calcium 9.3 (8.4-10.2) mg/dL Total Bilirubin 0.7 (0.0-1.0) mg/dL AST 17 (5-37) U/L ALT 16 (0-40) U/L Alkaline Phosphatase 76 (39-117) U/L Troponin I High Sens (<3.5-35.0) ng/L B-Natriuretic Peptide < 10 (<100) pg/mL Total Protein 7.6 (6.5-8.0) g/dL Albumin 4.2 (3.5-5.0) g/dL Urine Color Urine Appearance Urine pH (5.0-9.0) Ur Specific [place] (1.005-1.025) Urine Protein (Neg-Trace) mg/dL Urine Glucose (UA) (Negative) mg/dL Urine Ketones (Negative) mg/dL Urine Blood (Negative) Urine Nitrite (Negative) Ur Leukocyte Esterase (Negative) Urine RBC (0-2) /HPF Urine WBC (0-5) /HPF Ur Squamous Epith Cells (0-2) /HPF Urine Bacteria (None Seen) Hyaline Casts (0-2) /LPF COVID-19 (CHANG) (Negative) COVID-19 Clin Com Influenza Type A (JIMENEZ) (Negative) Influenza Type B (JIMENEZ) (Negative) Influenza A & B Note 05/02/22 05/02/22 05/02/22 Range/Units 14:21 14:21 14:21 WBC (4.8-10.8) X10*3/uL RBC (4.60-5.80) X10*6/uL Hgb (14.0-18.0) g/dl Hct (42.0-52.0) % MCV (80.0-98.0) fL MCH (27.0-33.0) pg MCHC (31.0-36.0) g/dl RDW (11.0-16.0) % Plt Count (160-400) X10*3/uL MPV (9.4-12.4) fL Immature Gran % (Auto) (0.0-0.4) % Neut % (Auto) (45-73) % Lymph % (Auto) (20-40) % [place] % (Auto) (2-11) % Eos % (Auto) (0-4) % Baso % (Auto) (0-2) % Lymph # (Auto) (1.2-4.9) X10*3/uL [place] # (Auto) (0.1-1.2) X10*3/uL Eos # (Auto) (0.0-0.4) X10*3/uL Baso # (Auto) (0.0-0.2) X10*3/uL Abs Immat Gran (auto) (0.00-0.03) X10*3/uL Absolute Neuts (auto) (2.0-8.3) x10*3/uL Absolute Nucleated RBC (0.0-0.012) X10*3/uL Nucleated RBC % (auto) (0.0-0.2) /100WBC Sodium (135-145) mmol/L Potassium (3.3-5.1) mmol/L Chloride (96-108) mmol/L Carbon Dioxide (22-29) mmol/L Anion Gap (12-20) BUN (9-16) mg/dL Creatinine (0.5-1.4) mg/dL Estim Creat Clear Calc Estimated GFR Random Glucose (60-115) mg/dL Calcium (8.4-10.2) mg/dL Total Bilirubin (0.0-1.0) mg/dL AST (5-37) U/L ALT (0-40) U/L Alkaline Phosphatase (39-117) U/L Troponin I High Sens 8.3 (<3.5-35.0) ng/L B-Natriuretic Peptide (<100) pg/mL Total Protein (6.5-8.0) g/dL Albumin (3.5-5.0) g/dL Urine Color Urine Appearance Urine pH (5.0-9.0) Ur Specific [place] (1.005-1.025) Urine Protein (Neg-Trace) mg/dL Urine Glucose (UA) (Negative) mg/dL Urine Ketones (Negative) mg/dL Urine Blood (Negative) Urine Nitrite (Negative) Ur Leukocyte Esterase (Negative) Urine RBC (0-2) /HPF Urine WBC (0-5) /HPF Ur Squamous Epith Cells (0-2) /HPF Urine Bacteria (None Seen) Hyaline Casts (0-2) /LPF COVID-19 (CHANG) Negative (Negative) COVID-19 Clin Com See Note Influenza Type A (JIMENEZ) Negative (Negative) Influenza Type B (JIMENEZ) Negative (Negative) Influenza A & B Note See Note 05/02/22 Range/Units 21:15 WBC (4.8-10.8) X10*3/uL RBC (4.60-5.80) X10*6/uL Hgb (14.0-18.0) g/dl Hct (42.0-52.0) % MCV (80.0-98.0) fL MCH (27.0-33.0) pg MCHC (31.0-36.0) g/dl RDW (11.0-16.0) % Plt Count (160-400) X10*3/uL MPV (9.4-12.4) fL Immature Gran % (Auto) (0.0-0.4) % Neut % (Auto) (45-73) % Lymph % (Auto) (20-40) % [place] % (Auto) (2-11) % Eos % (Auto) (0-4) % Baso % (Auto) (0-2) % Lymph # (Auto) (1.2-4.9) X10*3/uL [place] # (Auto) (0.1-1.2) X10*3/uL Eos # (Auto) (0.0-0.4) X10*3/uL Baso # (Auto) (0.0-0.2) X10*3/uL Abs Immat Gran (auto) (0.00-0.03) X10*3/uL Absolute Neuts (auto) (2.0-8.3) x10*3/uL Absolute Nucleated RBC (0.0-0.012) X10*3/uL Nucleated RBC % (auto) (0.0-0.2) /100WBC Sodium (135-145) mmol/L Potassium (3.3-5.1) mmol/L Chloride (96-108) mmol/L Carbon Dioxide (22-29) mmol/L Anion Gap (12-20) BUN (9-16) mg/dL Creatinine (0.5-1.4) mg/dL Estim Creat Clear Calc Estimated GFR Random Glucose (60-115) mg/dL Calcium (8.4-10.2) mg/dL Total Bilirubin (0.0-1.0) mg/dL AST (5-37) U/L ALT (0-40) U/L Alkaline Phosphatase (39-117) U/L Troponin I High Sens (<3.5-35.0) ng/L B-Natriuretic Peptide (<100) pg/mL Total Protein (6.5-8.0) g/dL Albumin (3.5-5.0) g/dL Urine Color Yellow Urine Appearance Clear Urine pH 7.0 (5.0-9.0) Ur Specific [place] 1.020 (1.005-1.025) Urine Protein Negative (Neg-Trace) mg/dL Urine Glucose (UA) Negative (Negative) mg/dL Urine Ketones Negative (Negative) mg/dL Urine Blood Negative (Negative) Urine Nitrite Negative (Negative) Ur Leukocyte Esterase Trace H (Negative) Urine RBC 0-2 (0-2) /HPF Urine WBC 0-5 (0-5) /HPF Ur Squamous Epith Cells 0-2 (0-2) /HPF Urine Bacteria None Seen (None Seen) Hyaline Casts 0-2 (0-2) /LPF COVID-19 (CHANG) (Negative) COVID-19 Clin Com Influenza Type A (JIMENEZ) (Negative) Influenza Type B (JIMENEZ) (Negative) Influenza A & B Note <Keith Plaza MD - Last Filed: 05/02/22 23:09> Independent Interpretation I performed an independent interpretation of an: EKG <Keith Plaza MD - Last Filed: 05/02/22 23:09> Interpretation: Sinus tachycardia heart rate 101 beats per minute normal interval normal axis and no acute ST wave changes no acute ischemia <Keith Plaza MD - Last Filed: 05/02/22 23:09> Discharge Plan Discharge Clinical Impression: Hypertension <Anai Vo CNP - Last Filed: 05/02/22 13:22> Patient Disposition: Home, Self-Care <Anai Vo CNP - Last Filed: 05/02/22 13:22> Instructions: How to Take a Blood Pressure (ED) <Anai Vo CNP - Last Filed: 05/02/22 13:22> Additional Instructions: You are at high risk of hypertension and heart problems because of your family history Decrease salt intake, exercise and weight reduction Check blood pressure daily If it is higher than 140/90 you may need medications, see PCP next week for further evaluation Tiene un alto riesgo de hipertensi?n y problemas card?acos debido a johanny antecedentes familiares. Disminuir la ingesta de jonathan, el ejercicio y la reducci?n de peso. Controle la presi?n arterial diariamente Si es superior a 140/90, es posible que necesite medicamentos; consulte al PCP la pr?xima semana para tereso evaluaci?n adicional <Anai Vo CNP - Last Filed: 05/02/22 13:22> Prescriptions: No Action albuterol sulfate [ProAir HFA] 90 mcg/actuation HFA aerosol inhaler 2 puff inhalation Q6H PRN (Reason: shortness of breath or wheezing) 30 Days Qty: 6.7 6RF hydroxyzine pamoate 50 mg capsule 50 mg PO BID PRN (Reason: anxiety) 30 Days Qty: 60 2RF ibuprofen 800 mg tablet 800 mg PO Q8H PRN (Reason: pain) 30 Days Qty: 90 0RF sertraline 100 mg tablet 100 mg PO DAILY 90 Days Qty: 90 1RF ibuprofen 800 mg tablet 800 mg PO TID PRN (Reason: pain) Qty: 30 0RF cyclobenzaprine 10 mg tablet 10 mg PO TID PRN (Reason: muscle spasm) Qty: 20 0RF cholecalciferol (vitamin D3) 50 mcg (2,000 unit) capsule 50 mcg PO DAILY 90 Days Qty: 90 3RF <Anai Vo CNP - Last Filed: 05/02/22 13:22> Print Language: Pashto <Anai Vo CNP - Last Filed: 05/02/22 13:22>
[2022-05-02 13:20] VITALS: BP 121/84; PULSE 95; RESP 20; TEMP 36.8; O2SAT 97; BMI 33.4
[2022-05-02 14:35] LABS: MANUAL DIFF FLAG NO
[2022-05-02 14:36] LABS: Basophils Percent Auto 0.4 % (0-2); Eosinophils Absolute Auto 0.2 X10*3/uL (0.0-0.4); Hematocrit 42.1 % (42.0-52.0); Hemoglobin 13.7 g/dl (14.0-18.0); Imm Gran Abs Auto 0.02 X10*3/uL (0.00-0.03); Imm Gran Pct Auto 0.3 % (0.0-0.4); Lymphocytes Absolute Auto 2.2 X10*3/uL (1.2-4.9); Lymphocytes Percent Auto 30.5 % (20-40); Mean Corpuscular HGB Conc 32.5 g/dl (31.0-36.0); Mean Corpuscular Hemoglobin 27.2 pg (27.0-33.0); Mean Corpuscular Volume 83.7 fL (80.0-98.0); Mean Platelet Volume 9.7 fL (9.4-12.4); Monocytes Absolute Auto 0.4 X10*3/uL (0.1-1.2); Monocytes Percent Auto 5.8 % (2-11); Neutrophils Absolute Auto 4.2 x10*3/uL (2.0-8.3); Platelet Count 281 X10*3/uL (160-400); Red Blood Count 5.03 X10*6/uL (4.60-5.80); Red Cell Distribution Width 13.2 % (11.0-16.0)
[2022-05-02 14:46] LABS: B Type Natriuretic Peptide < 10 pg/mL (<100)
[2022-05-02 14:51] LABS: Alanine Aminotransferase 16 U/L (0-40); Albumin Level 4.2 g/dL (3.5-5.0); Alkaline Phosphatase 76 U/L (39-117); Anion Gap 10 (12-20); Aspartate Amino Transferase 17 U/L (5-37); Bilirubin Total 0.7 mg/dL (0.0-1.0); Blood Urea Nitrogen 18 mg/dL (9-16); Calcium 9.3 mg/dL (8.4-10.2); Carbon Dioxide 31 mmol/L (22-29); Chloride 108 mmol/L (96-108); Creatinine Clr Calc Pharmacy 99.5; Estimated Glomerular Filt Rate > 60; Glucose Random 86 mg/dL (60-115); Potassium 4.1 mmol/L (3.3-5.1); Sodium 145 mmol/L (135-145); Total Protein 7.6 g/dL (6.5-8.0)
[2022-05-02 14:53] LABS: Troponin-I High Sensitivity 8.3 ng/L (<3.5-35.0)
[2022-05-02 14:59] LABS: COVID-19 Test Negative (Negative); IDNOW Serial# 16C4AD1C; IDNOW Serial# BCCEAD1C; Influenza A Negative (Negative); Influenza B2 Negative (Negative)
[2022-05-02 18:48] VITALS: BP 138/92; PULSE 74; RESP 16; O2SAT 96
[2022-05-02 21:08] VITALS: BP 135/93; PULSE 67; RESP 12; TEMP 37.1; O2SAT 96
[2022-05-02 21:26] LABS: Appearance Urine Clear; Color Urine Yellow; Glucose Urine UA Negative (Negative); Leukocyte Esterase Urine Trace (Negative); Nitrite Urine Negative (Negative); UMIC TRIGGER UACC YES; Urine Blood Negative (Negative); Urine Ketones Negative (Negative); Urine Protein Negative (Neg-Trace)
[2022-05-02 21:31] LABS: Bacteria Urine None Seen (None Seen); Hyaline Casts Urine 0-2 /LPF (0-2); RBC Urine 0-2 /HPF (0-2); Squamous Epithelial Cell Urine 0-2 /HPF (0-2); WBC Urine 0-5 /HPF (0-5)
--- NOTE | 2022-05-02 23:09 | PC.NURSE ---
Pt aox3. Discharge instructions reviewed with pt. Pt verbalizes understanding. Able to ambulate independently with a steady gait.
== END 2022-05-02 23:10 | disposition home or self-care (01) ==
PROVIDERS: Nurse Practitioner Family; Emergency Provider Internal Medicine; PCP Internal Medicine
DX: I10 Essential (primary) hypertension (principal); R00.0 Tachycardia, unspecified; Z20.822 Contact with and (suspected) exposure to COVID-19; E66.9 Obesity, unspecified; Z68.33 Body mass index [BMI] 33.0-33.9, adult; Z87.891 Personal history of nicotine dependence
CPT/HCPCS: 36415; 80053; 81001; 83880; 84484; 85025; 87502; 87635; 93005; 99283; 99284

== ENCOUNTER 2022-06-06 08:01 | Outpatient (REF) | payer OTHER, SELFPAY ==
[2022-06-06 09:07] LABS: Alanine Aminotransferase 15 U/L (0-40); Albumin Level 4.1 g/dL (3.5-5.0); Alkaline Phosphatase 72 U/L (39-117); Anion Gap 11 (12-20); Aspartate Amino Transferase 13 U/L (5-37); Bilirubin Total 0.7 mg/dL (0.0-1.0); Blood Urea Nitrogen 12 mg/dL (9-16); Calcium 9.3 mg/dL (8.4-10.2); Carbon Dioxide 30 mmol/L (22-29); Chloride 104 mmol/L (96-108); Cholesterol 199 mg/dL; Estimated Glomerular Filt Rate > 60; Glucose Fasting 103 mg/dL (60-99); HDL Cholesterol 40 mg/dL; LDL Cholesterol Calculated 127 mg/dl; Potassium 4.5 mmol/L (3.3-5.1); Sodium 140 mmol/L (135-145); Total Protein 7.2 g/dL (6.5-8.0); Triglycerides 163 mg/dL
[2022-06-06 09:23] LABS: Vitamin D 25-OH Total 21.9 ng/mL (>30)
== END 2022-06-06 08:02 | disposition home or self-care (01) ==
LOC: HO.LAB 08:01
PROVIDERS: PCP Internal Medicine; Visit Provider Internal Medicine
DX: R07.9 Chest pain, unspecified (principal); E55.9 Vitamin D deficiency, unspecified; E78.5 Hyperlipidemia, unspecified
CPT/HCPCS: 36415; 80053; 80061; 82306

== ENCOUNTER → 2022-06-17 09:40 | Outpatient (REF) | payer OTHER, SELFPAY ==
--- NOTE | 2022-06-17 09:42 | CA_ITS ---
Acquisition Time: 2022-06-17 09:53:43 Total Exercise Time: 00:08:00 Test Indications: CP Medications: SEE H Protocol: ISMAEL Max HR: 142 BPM 82% of Pred: 173 BPM Max BP: 158/090 mmHG Max Work Load: 10.1 METS Exercise stress test with exercise 8 min of Ismael protocol, achieving 82% MPHR, 10.1 METs, with request to stop due to fatigue and sob, with mod sob, no chest discomfort, without arrythmia, with normotensive response to exercise, without EKG changes meeting criteria for ischemia. In recovery his breathing quickly normalized. Accuracy to assess for ischemis is mildly decreased due to inability to achieve 85% MPHR. Test reviewed with Dr Brush Referred By: Madalyn Oliva Overread By: COURTNEY LEVY
== END ==
LOC: HO.CARD 09:40
PROVIDERS: PCP Internal Medicine; Visit Provider Internal Medicine
DX: R07.9 Chest pain, unspecified (principal)
CPT/HCPCS: 93017

== ENCOUNTER → 2022-07-04 10:49 | Outpatient (REF) | payer OTHER, SELFPAY ==
--- NOTE | 2022-07-04 10:51 | CA_ITS ---
Acquisition Time: 2022-07-04 11:09:40 Total Exercise Time: 00:10:00 Test Indications: Abnormal Treadmill Test CP Medications: CLONIDINE SERTRALINE VENTOLIN INHALER Protocol: ISMAEL Max HR: 160 BPM 92% of Pred: 173 BPM Max BP: 150/082 mmHG Max Work Load: 11.7 METS Exercise stress test exercise 10 min of Ismael protocol, with no chest discomfort, moderate SOB, with isolated PACs and PVCs and short runs of ventricular bigeminy, with normotensive response to exercise, without EKG chnages. Echo images obtained by tech at rest and immediately post peak exercise. Definety contrast used. Test reviewed with Dr. Flanagan. Referred By: Madalyn Oliva Overread By: COURTNEY LEVY
== END ==
LOC: HO.CARD 10:49
PROVIDERS: PCP Internal Medicine; Visit Provider Internal Medicine
DX: R94.39 Abnormal result of other cardiovascular function study (principal)
CPT/HCPCS: 93350; Q9957

== ENCOUNTER 2022-09-21 22:50 | Emergency (ER) | payer OTHER, SELFPAY ==
[2022-09-21 22:55] VITALS: BP 140/89; PULSE 65; RESP 18; TEMP 36.6; O2SAT 96; BMI 31.7
--- NOTE | 2022-09-22 01:03 | ED.SKABFB ---
HPI - Skin/Abscess/Foreign Bdy General Chief complaint: Skin/Abscess/Foreign Body Stated complaint: poison madelyn on feet Time Seen by Provider: 09/22/22 00:14 Source: patient Mode of arrival: ambulatory Limitations: no limitations History of Present Illness HPI narrative: Patient comes emergency room complaining of a vesicular rash in both lower extremities and left arm. Patient states it has been very itchy, has been trying column in but is not helping much. Patient states that he works in [employer] and usually has to walk around told bushes and tall grass and is concerned that he may have been exposed to poison madelyn Related Data Home Medications Medication Instructions Recorded Confirmed clonidine HCl 0.1 mg tablet 0.1 mg PO BID 06/06/22 06/13/22 Previous Rx's Medication Instructions Recorded ibuprofen 800 mg tablet 800 mg PO Q8H PRN pain 30 days #90 03/18/22 tabs sertraline 100 mg tablet 100 mg PO DAILY 90 days #90 tabs 04/24/22 Ventolin HFA 90 mcg/actuation 2 puff inhalation Q6H PRN 06/06/22 aerosol inhaler (albuterol sulfate) shortness of breath or wheezing 30 days #8 grams cholecalciferol (vitamin D3) 50 50 mcg PO DAILY 90 days #90 caps 06/06/22 mcg (2,000 unit) capsule hydrocortisone 2.5 % topical cream 1 appl topical TID PRN itching #30 09/22/22 grams Allergies Allergy/AdvReac Type Severity Reaction Status Date / Time No Known Allergies Allergy Verified 09/21/22 23:01 Review of Systems Review of Systems: Constitutional : No Weight loss, No Fever, No Chills, No Night Sweats, No Fatigue, No Malaise ENT/Mouth : No Hearing loss, No Ear Pain, No Nasal Congestion, No Sinus Pain, No Hoarseness, No sore throat, No Rhinorrhea, No Swallowing Difficulty Eyes: No Eye Pain, No Swelling, No Redness, No Foreign Body, No Discharge, No Vision Changes Cardiovascular : No Chest Pain, No SOB, No Dyspnea on Exertion, No Orthopnea, No Edema, No Palpitations Respiratory : No Cough, No Sputum, No Wheezing, No Smoke Exposure, No Dyspnea Gastrointestinal : No Nausea, No Vomiting, No Diarrhea, No Constipation, No abdominal Pain, No Hematochezia, No Melena Genitourinary : no irregular bleeding, No Dysuria, No Urinary Frequency, No Hematuria, No Urinary Incontinence, No Urgency, No Flank Pain, No Urinary Flow Changes, No Hesitancy Musculoskeletal : No joint pain, No Myalgias, No Joint Swelling Skin : Complaining of linear itchy vesicular rash in lower extremities and left arm Neuro : No Weakness, No Numbness, No Paresthesias, No Loss of Consciousness, No Dizziness, No Headache Psych : No Anxiety/Panic, No Depression, No SI/HI/AH/VH, No Social Issues, Heme/Lymph: No Bruising, No Bleeding,No Lymphadenopathy Endocrine : No Polyuria, No Polydipsia, No Temperature Intolerance [facility] Past Medical History Medical History Chest pain Depression with anxiety Encounter for physical examination Hypovitaminosis D Mild asthma Mild recurrent major depression Obesity (BMI 30.0-34.9) Overweight (BMI 25.0-29.9) Surgical History No pertinent past surgical history Family History Family History Father Prostate cancer Mother Asthma Social History Social History Housing: Apartment Alcohol intake: former Patient Tobacco Use Status: Former Tobacco user Tobacco use type: Cigarette e-Cigarette/Vaping Use: Never Used Second Hand Smoke Exposure: No Advance Directives: No Advance Directives Information Provided: No service: No Current occupational status: unemployed Cognitive needs: No Hearing needs: No Vision needs: No Physical Exam Vital Signs: Vital Signs: Last Vital Signs Temp 97.9 F 09/21/22 22:55 Pulse 65 09/21/22 22:55 Resp 18 09/21/22 22:55 BP 140/89 H 09/21/22 22:55 Pulse Ox 96 09/21/22 22:55 O2 Del Method Room Air 09/21/22 22:55 BMI result Body Mass Index 31.7 Const: Other: Appearance: Alert. Oriented X3. No acute distress. Eyes: Pupils equal, round and reactive to light. ENT: Pharynx normal. Neck: Normal inspection. Neck supple. No lymph nodes noted. No crepitus CVS: Normal heart rate and rhythm. Pulses normal. Normal S1 and S2 Respiratory: No respiratory distress. Breath sounds normal. No Wheezing. No rales Abdomen: Soft and nontender. No rigidity. No distention. Skin: Skin warm and dry. Patient has crusting vesicular rash in both lower extremities in both breasts Extremities: No lower extremity edema. No Lacerations. No Rash Neuro: Oriented X 3. No motor deficit. No sensory deficit. Moving all extremities. No slurred speech. CN 2 through 12 grossly intact Psych: calm, cooperative, normal affect Medical Decision Making Medical Decision Making MDM Narrative: -I discussed the physical exam with the patient, vesicular linear rash in lower extremities and in the dorsum of the hand/wrist consistent with poison madelyn -patient was given p.o. prednisone and Benadryl in the emergency room. -patient given a prescription for hydrocortisone for home Differential Diagnosis Differential Diagnoses: The differential diagnosis associated with the presentation includes (Poison madelyn, shingles, contact dermatitis) Discharge Plan Discharge Clinical Impression: Poison madelyn Patient Disposition: Home, Self-Care Instructions: Poison Madelyn (ED) Additional Instructions: Please follow-up with your primary care physician tomorrow. If you have any worsening or new symptoms, please return to the emergency room or call 911 Prescriptions: New hydrocortisone 2.5 % cream 1 appl topical TID PRN (Reason: itching) Qty: 30 0RF No Action ibuprofen 800 mg tablet 800 mg PO Q8H PRN (Reason: pain) 30 Days Qty: 90 0RF sertraline 100 mg tablet 100 mg PO DAILY 90 Days Qty: 90 1RF clonidine HCl 0.1 mg tablet 0.1 mg PO BID cholecalciferol (vitamin D3) 50 mcg (2,000 unit) capsule 50 mcg PO DAILY 90 Days Qty: 90 3RF albuterol sulfate [Ventolin HFA] 90 mcg/actuation HFA aerosol inhaler 2 puff inhalation Q6H PRN (Reason: shortness of breath or wheezing) 30 Days Qty: 8 1RF
[2022-09-22] MEDS: diphenhydrAMINE HCL 25 MG CAPSULE PO (01:41)
[2022-09-22] MEDS: predniSONE 20 MG TABLET 60 MG PO (01:41)
== END 2022-09-22 01:42 | disposition home or self-care (01) ==
PROVIDERS: Emergency Provider Emergency Medicine; PCP Internal Medicine
DX: L23.7 Allergic contact dermatitis due to plants, except food (principal)
CPT/HCPCS: 99282; 99283

== ENCOUNTER 2023-02-12 07:21 | Day surgery (SDC) | payer OTHER, SELFPAY ==
[2023-02-10 15:43] VITALS: BMI 32.4
--- NOTE | 2023-02-11 11:43 | HO.ANESPROP2 ---
Documented by User: Keyona Rausch NP 02/11/23 11:43 HPI - Anesthesia Eval Consult details Narrative: 47yo M for Colonoscopy PMFSH Active Problems Active Problems: All Active Problems (Updated 09/23/22 @ 00:01 by Ciara Shaw) Abnormal stress test (Acute) Moderate recurrent major depression (Acute) SIRISHA (generalized anxiety disorder) (Acute) Obesity (BMI 30.0-34.9) (Acute) Chest pain (Acute) Encounter for physical examination (Acute) Dysuria (Acute) Hypovitaminosis D (Acute) Mild asthma (Acute) Overweight (BMI 25.0-29.9) (Acute) Depression with anxiety (Acute) Past Medical History Medical History (Updated 02/12/23 @ 07:37 by Thelma Alanis, RN) HTN (hypertension) Mild recurrent major depression Obesity (BMI 30.0-34.9) Chest pain Encounter for physical examination Hypovitaminosis D Mild asthma Overweight (BMI 25.0-29.9) Depression with anxiety Family History Family History Father Prostate cancer Mother Asthma Surgical History Surgical History No pertinent past surgical history Social History Social History Housing: Apartment Alcohol intake: former Patient Tobacco Use Status: Former Tobacco user Quit Date: 10 yrs ago Tobacco use type: Cigarette e-Cigarette/Vaping Use: Never Used Second Hand Smoke Exposure: No Use of substances other than those prescribed or required for medical reasons: No Are you DNR?: No Advance Directives: No Advance Directives Information Provided: Yes service: No Current occupational status: unemployed Cognitive needs: No Hearing needs: No Vision needs: No Meds Allergies Allergy/AdvReac Type Severity Reaction Status Date / Time No Known Allergies Allergy Verified 02/12/23 07:37 Home Medications Medication Instructions Recorded Confirmed Last Taken Type clonidine HCl 0.1 mg tablet 0.1 mg PO BID 06/06/22 02/10/23 Unknown History Exam Height,Weight and Vital Signs: Height 5 ft 8 in Weight 96.615 kg Assessment and Plan Assessment Anesthesia Assessment: Chart Reviewed Documented by User: Jessica Huntley MD 02/12/23 08:41 [facility] Past Medical History Medical History (Updated 02/12/23 @ 07:37 by Thelma Alanis, RN) HTN (hypertension) Mild recurrent major depression Obesity (BMI 30.0-34.9) Chest pain Encounter for physical examination Hypovitaminosis D Mild asthma Overweight (BMI 25.0-29.9) Depression with anxiety Family History Family History Father Prostate cancer Mother Asthma Family history of problems with anesthesia: No Surgical History Surgical History No pertinent past surgical history History of Problems with Anesthesia: No Social History Social History Housing: Apartment Alcohol intake: former Patient Tobacco Use Status: Former Tobacco user Quit Date: 10 yrs ago Tobacco use type: Cigarette e-Cigarette/Vaping Use: Never Used Second Hand Smoke Exposure: No Use of substances other than those prescribed or required for medical reasons: No Are you DNR?: No Advance Directives: No Advance Directives Information Provided: Yes service: No Current occupational status: unemployed Cognitive needs: No Hearing needs: No Vision needs: No Meds Allergies Allergy/AdvReac Type Severity Reaction Status Date / Time No Known Allergies Allergy Verified 02/12/23 07:37 Home Medications Medication Instructions Recorded Confirmed Last Taken Type clonidine HCl 0.1 mg tablet 0.1 mg PO BID 06/06/22 02/10/23 Unknown History Exam Airway Mallampati Class: II (2 top front caps) TM Dist: >3cm Neck ROM: Full Heart: rrr Lungs: cta Assessment and Plan Assessment Anesthesia Assessment: Anesthesia Plan Discussed Final Anesthetic Review Family History of Problems with Anesthesia: No History of Problems with Anesthesia: No NPO: Yes ASA Class: II Final Preanesthetic Review: No Changes in Pt Med Stat, Meds/Allgs Chart Reviewed and Consent Obtained/Reviewed Patient Risk: Intermediate Procedure Risk: Intermediate Anesthetic Plan Anesthetic Plan: MAC: Disposition: Standard PACU
[2023-02-12 07:39] VITALS: BMI 32.3
[2023-02-12 07:55] VITALS: BP 160/96; PULSE 74; RESP 16; TEMP 36.6; O2SAT 95
[2023-02-12] MEDS: Lactated Ringers 1,000 ML 100 ML IVCONT (08:15)
--- NOTE | 2023-02-12 08:42 | MHC.SHP ---
Pre-Procedural Eval Section A Date of Service: 02/12/23 Section B Chief Complaint: screening Details of Present Illness: father CRC Relevant Family History (Specify if Yes): Yes Relevant Social History: None Present Medications: see Short Stay Collaborative assessment Medical History: Significant History (HTN (hypertension) Mild recurrent major depression Obesity (BMI 30.0-34.9) Chest pain Encounter for physical examination Hypovitaminosis D Mild asthma Overweight (BMI 25.0-29.9) Depression with anxiety) History of Previous Operations: No relevant previous surgery Allergies: Allergies Allergy/AdvReac Type Severity Reaction Status Date / Time No Known Allergies Allergy Verified 02/12/23 07:37 Review of Systems Sugical H&P ROS: Negative: Constitution, Cardiovascular, Respiratory, Neurological, Psychiatric, Hem-Onc, Allergic/Immunologic, Gastrointestinal, Genitourinary, Musculoskeletal, Integumentary, Endocrine and Eyes/Ears/Nose/Throat Exam Surgical H&P Exam: Normal: HEENT, Normal: Heart, Normal: Lungs, Normal: Extremities, Normal: Abdomen, Normal: Skin and Normal: Neurological Plan Diagnosis/Plan: Unchanged I have reviewed the history and physical and performed a pertinent physical examination on my patient. No changes have occurred unless specified. Time Spent With Patient Time: Total time managing care of this patient today ____ minutes.
--- NOTE | 2023-02-12 08:43 | W.PM.OPN ---
Operative Note Operative Note Date of Service: 02/12/23 Narrative: Operative Information Procedure Description: Colonoscopy Indication: screening Anesthesia: MAC COLONOSCOPY Instrument: Olympus variable stiffness pediatric scope 190L Colonoscopy Monitoring: Vital signs and clinical assessment, continuous EKG monitoring, Pulse oximetry, Carbon Dioxide monitoring and blood pressure monitoring were done throughout the procedure. Colon withdrawal time was 11 minutes. Procedure: The patient was placed in the left lateral decubitis position and pre-procedure medications were administered. After a digital rectal examination of the ano-rectum, the video colonoscope was inserted into the rectum and advanced through the colon to the cecum/TI. The colonoscope was slowly withdrawn in a retrograde panoramic fashion and the colon mucosa was carefully examined including a retroflexed view of the rectum. Findings and interventions are described below. Procedure Difficulty: easy Findings: Terminal Ileum-normal Cecum:normal Ascending Colon: normal Transverse Colon -normal Descending Colon:normal Sigmoid Colon: mild diverticulosis Rectum: Retroflexion with small internal hemorrhoids, grade I, 6-8 mm sessile polyp removed with cold snare Anorectum - normal Colon preparation: [place] Bowel Preparation Scale Right colon; 2 Transverse colon: 3 Left colon; 3 (0 = Unprepared colon segment with mucosa not seen due to solid stool that cannot be cleared. 1 = Portion of mucosa of the colon segment seen, but other areas of the colon segment not well seen due to staining, residual stool and/or opaque liquid. 2 = Minor amount of residual staining, small fragments of stool and/or opaque liquid, but mucosa of colon segment seen well. 3 = Entire mucosa of colon segment seen well with no residual staining, small fragments of stool or opaque liquid) Impression and Post Procedure Diagnosis: polyp internal hemorrhoids diverticular disease Plan: High fiber diet leaflet Avoid straining at stool, epsom salts and sitz bath, anusol supps or cream Repeat Colonoscopy in 5 years due to polyp and pos FH of CRC or earlier if clinically indicated Above findings were reviewed with the patient and relevant handouts were provided if indicated.
[2023-02-12 09:10] VITALS: BP 125/87; PULSE 71; RESP 16; TEMP 36.1; O2SAT 97
[2023-02-12 09:25] VITALS: BP 134/85; PULSE 72; RESP 16; O2SAT 98
[2023-02-12 09:40] VITALS: BP 152/97; PULSE 61; RESP 16; TEMP 36.2; O2SAT 97
== END 2023-02-12 10:10 | disposition home or self-care (01) ==
PROVIDERS: PCP Internal Medicine; Visit Provider Internal Medicine Gastroenterology
PROC: 0DJD8ZZ Inspection of Lower Intestinal Tract, Via Natural or Artificial Opening Endoscopic (ICD-10-PCS; CPT 45378; principal; 2023-02-12 08:30)
DX: Z12.11 Encounter for screening for malignant neoplasm of colon (principal); K62.1 Rectal polyp; K57.30 Diverticulosis of large intestine without perforation or abscess without bleeding; K64.0 First degree hemorrhoids; I10 Essential (primary) hypertension; E55.9 Vitamin D deficiency, unspecified; J45.909 Unspecified asthma, uncomplicated; F33.1 Major depressive disorder, recurrent, moderate; F41.1 Generalized anxiety disorder; Z79.899 Other long term (current) drug therapy; Z87.891 Personal history of nicotine dependence
CPT/HCPCS: 45385; 88305; J2704

== ENCOUNTER → 2023-02-12 07:21 | Outpatient (BNV) | payer OTHER, SELFPAY | PROVIDERS: PCP Internal Medicine; Visit Provider Internal Medicine Gastroenterology | DX: Z12.11 Encounter for screening for malignant neoplasm of colon (principal); K62.1 Rectal polyp; K64.0 First degree hemorrhoids; K57.30 Diverticulosis of large intestine without perforation or abscess without bleeding | CPT/HCPCS: 45385 ==

== ENCOUNTER 2023-07-19 08:40 | Emergency (ER) | payer MEDICAID, SELFPAY ==
--- NOTE | ~2023-07-19 | CT_ITS ---
EXAMINATION: CT HEAD WITHOUT CONTRAST CLINICAL INFORMATION: Headache with eye pressure. Hypertension. COMPARISON: None. TECHNIQUE: Contiguous axial imaging was performed from the skullbase to vertex without intravenous administration of contrast. This CT examination was performed using dose optimization techniques as appropriate, variously including the following: *Automated exposure control *Adjustment of mA and/or kV according to patient size (this includes techniques or standardized protocols for targeted exams where dose is matched to indication/reason for exam; i.e. extremities or head) *Use of iterative reconstruction technique DLP: 641 mGy-cm. FINDINGS: There is no evidence of acute intracranial hemorrhage or territorial infarction. No abnormal mass effect or midline shift is seen. [place] to white matter differentiation is well preserved. No extra-axial fluid collections are identified. Incidental ck cisterna magna evident. The ventricles are normal in size. There is no abnormal attenuation within the brain parenchyma. The osseous structures and soft tissues are normal. The mastoid air cells and visualized portions of the paranasal sinuses are well aerated. CT/CT head/brain wo IV con IMPRESSION: No acute intracranial pathology.
[2023-07-19 08:55] VITALS: BP 142/84; PULSE 90; RESP 17; TEMP 36.6; O2SAT 98; BMI 32.4
--- NOTE | 2023-07-19 09:06 | ECG_ITS ---
Test Reason : HIGH BP Blood Pressure : / mmHG Vent. Rate : 091 BPM Atrial Rate : 091 BPM P-R Int : 172 ms QRS Dur : 082 ms QT Int : 394 ms P-R-T Axes : 048 033 063 degrees QTc Int : 484 ms Normal sinus rhythm Cannot rule out Anterior infarct , age undetermined Abnormal ECG When compared with ECG of 02-MAY-2022 12:33, No significant change was found Referred By: Nayeli Sorensen Electronically Signed By:Francisco J Flanagan
--- NOTE | 2023-07-19 09:18 | ED_ITS ---
HPI - General Adult General Chief complaint: General Medical Stated complaint: high bp Time Seen by Provider: 07/19/23 09:00 Source: patient and vp communications Mode of arrival: ambulatory History of Present Illness HPI narrative: 48-year-old male who presents with complaints of 4 days of blood pressure, denies any alcohol or drug use and states that he saw his primary care doctor who started him on clonidine. Patient states he has been experiencing increased headache with eye pressure but denies any dizziness/visual disturbance and denies any unilateral symptoms such as numbness/tingling/weakness. Related Data Previous Rx's ?Medication ?Instructions ?Recorded ibuprofen 800 mg tablet 800 mg PO Q8H PRN pain 30 days #90 03/18/22 tabs sertraline 100 mg tablet 100 mg PO DAILY 90 days #90 tabs 04/24/22 cholecalciferol (vitamin D3) 50 50 mcg PO DAILY 90 days #90 caps 05/30/23 mcg (2,000 unit) capsule Ventolin HFA 90 mcg/actuation 2 puff inhalation Q6H PRN 06/27/23 aerosol inhaler (albuterol sulfate) shortness of breath or wheezing 30 days #8 grams hydrochlorothiazide 25 mg tablet 25 mg PO DAILY #14 tabs 07/19/23 Allergies Allergy/AdvReac Type Severity Reaction Status Date / Time No Known Allergies Allergy Verified 07/19/23 08:58 Review of Systems 2 Review of Systems: Pertinent positives and negatives as stated in HPI [facility] Past Medical History Source: nursing notes reviewed Medical History HTN (hypertension) Mild recurrent major depression Obesity (BMI 30.0-34.9) Chest pain Encounter for physical examination Hypovitaminosis D Mild asthma Overweight (BMI 25.0-29.9) Depression with anxiety Surgical History No pertinent past surgical history Family History Family History Father Prostate cancer Mother Asthma Social History Social History Housing: Apartment Alcohol intake: former Patient Tobacco Use Status: Former Tobacco user Quit Date: 10 yrs ago Tobacco use type: Cigarette e-Cigarette/Vaping Use: Never Used Second Hand Smoke Exposure: No Advance Directives: No service: No Current occupational status: unemployed Cognitive needs: No Hearing needs: No Vision needs: No Physical Exam ED Vital Signs: Vital Signs - 24 hr 07/19/23 08:55 Temperature 97.8 F Pulse Rate 90 Respiratory Rate 17 Blood Pressure 142/84 H Pulse Oximetry 98 Oxygen Delivery Method Room Air BMI result Body Mass Index 32.4 VITAL SIGNS: Reviewed. GENERAL: Well developed, well nourished, in no acute distress. HEAD: Normocephalic/atraumatic EYES: PERRLA, EOMI EARS: Ext canals without abnormality NOSE: Nares patent bilateral OROPHARYNX: no oral lesions noted, posterior pharynx clear NECK: Supple, no adenopathy LUNGS: Normal breath sounds. No adventitious sounds or accessory muscle use. SpO2<98> CARDIOVASCULAR: Regular rate and rhythm without noted murmurs ABDOMEN: Soft, non-tender, non-distended with bowel sounds. MUSCULOSKELETAL: No tenderness, deformities, or effusions noted on gross inspection. EXTREMITIES: No cyanosis, clubbing or edema. SKIN: Inspection of the skin reveals no rashes NEUROLOGIC: Alert and oriented x 4. Strength and sensation to light touch were grossly intact x 4, no facial asymmetry, no pronator drift, cranial nerves 2-12 are grossly intact.. Medical Decision Making Medical Decision Making [facility] Narrative: 48-year-old male with history and clinical presentation, DDX: Poorly-controlled hypertension, no focal symptoms, due to headache and eye pressure will proceed with CT of the head, EKG without acute findings to suggest STEMI. I reviewed all investigations and hematologic indices are negative for leukocytosis or left shift and patient has a stable normocytic anemia no thrombocytopenia. Chemistry indices are negative for SILVA/electrolyte or liver enzyme derangements. CT of the head negative for intracranial hemorrhage or mass effect. Patient declining urinalysis. Patient will be instructed to stop taking the clonidine as this is likely contributing to rebound hypertension with associated symptoms. He is otherwise discharged and instructed follow-up with his primary care doctor. Differential Diagnosis Differential Diagnoses: The differential diagnosis associated with the presentation includes Please see the discussion above Admission/Observation Consideration of admission/observation: Escalation of care including admission/observation considered Please see the discussion above Lab Data [facility] Lab Attestation statement: I reviewed the patient's lab results. Please see the discussion above 07/19/23 09:20 07/19/23 09:20 Labs: Lab Results 07/19/23 Range/Units 09:20 WBC 6.5 (4.8-10.8) X10*3/uL RBC 4.94 (4.60-5.80) X10*6/uL Hgb 13.8 L (14.0-18.0) g/dl Hct 40.8 L (42.0-52.0) % MCV 82.6 (80.0-98.0) fL MCH 27.9 (27.0-33.0) pg MCHC 33.8 (31.0-36.0) g/dl RDW 13.2 (11.0-16.0) % Plt Count 269 (160-400) X10*3/uL MPV 9.7 (9.4-12.4) fL Immature Gran % (Auto) 0.3 (0.0-0.4) % Neut % (Auto) 62.5 (45-73) % Lymph % (Auto) 24.0 (20-40) % [place] % (Auto) 5.1 (2-11) % Eos % (Auto) 7.6 H (0-4) % Baso % (Auto) 0.5 (0-2) % Lymph # (Auto) 1.6 (1.2-4.9) X10*3/uL [place] # (Auto) 0.3 (0.1-1.2) X10*3/uL Eos # (Auto) 0.5 H (0.0-0.4) X10*3/uL Baso # (Auto) 0.0 (0.0-0.2) X10*3/uL Abs Immat Gran (auto) 0.02 (0.00-0.03) X10*3/uL Absolute Neuts (auto) 4.0 (2.0-8.3) x10*3/uL Absolute Nucleated RBC 0.000 (0.0-0.012) X10*3/uL Nucleated RBC % (auto) 0.0 (0.0-0.2) /100WBC Sodium 141 (135-145) mmol/L Potassium 3.4 (3.3-5.1) mmol/L Chloride 109 H (96-108) mmol/L Carbon Dioxide 21 L (22-29) mmol/L Anion Gap 14 (12-20) BUN 18 H (9-16) mg/dL Creatinine 0.87 (0.5-1.4) mg/dL Estim Creat Clear Calc 117.0 Estimated GFR > 60 Random Glucose 135 H (60-115) mg/dL Calcium 9.1 (8.4-10.2) mg/dL Total Bilirubin 0.7 (0.0-1.0) mg/dL AST 16 (5-37) U/L ALT 14 (0-40) U/L Alkaline Phosphatase 82 (39-117) U/L Troponin I High Sens 4.8 (<3.5-35.0) ng/L Total Protein 7.3 (6.5-8.0) g/dL Albumin 4.0 (3.5-5.0) g/dL Independent Interpretation I performed an independent interpretation of an: EKG Interpretation: Normal sinus rhythm, HR-91, no STEMI, IL/QRS/QTC are within normal limits. Radiology Impression Discussion of test interpretation with radiology: I have reviewed the radiologist's reading. Radiologist Impression: Please see the discussion above External Record Review External record reviewed: Outpatient record and Prior outpatient labs Chronic Conditions Patient?s care impacted by: Hypertension Critical Care Time Critical Care Time Critical Care Time: Yes Total Critical Care Time: 30 Attestation: I personally attest to this time spent taking care of the patient. Discharge Plan Discharge Clinical Impression: Hypertension, Headache Patient Disposition: Home, Self-Care Instructions: DASH Eating Plan (ED), Hypertension (ED), General Headache (ED) Additional Instructions: Stop taking clonidine. Start the new medication. Follow-up with your primary care doctor. Prescriptions: New hydrochlorothiazide 25 mg tablet 25 mg PO DAILY Qty: 14 0RF Discontinued clonidine HCl 0.1 mg tablet 0.1 mg PO BID No Action ibuprofen 800 mg tablet 800 mg PO Q8H PRN (Reason: pain) 30 Days Qty: 90 0RF sertraline 100 mg tablet 100 mg PO DAILY 90 Days Qty: 90 1RF cholecalciferol (vitamin D3) 50 mcg (2,000 unit) capsule 50 mcg PO DAILY 90 Days Qty: 90 3RF albuterol sulfate [Ventolin HFA] 90 mcg/actuation HFA aerosol inhaler 2 puff inhalation Q6H PRN (Reason: shortness of breath or wheezing) 30 Days Qty: 8 1RF Referrals: Madalyn Claire MD [Primary Care Provider] - Print Language: Malay
[2023-07-19 09:24] LABS: MANUAL DIFF FLAG NO
[2023-07-19 09:26] LABS: Basophils Percent Auto 0.5 % (0-2); Eosinophils Absolute Auto 0.5 X10*3/uL (0.0-0.4); Eosinophils Percent Auto 7.6 % (0-4); Hematocrit 40.8 % (42.0-52.0); Hemoglobin 13.8 g/dl (14.0-18.0); Imm Gran Abs Auto 0.02 X10*3/uL (0.00-0.03); Imm Gran Pct Auto 0.3 % (0.0-0.4); Lymphocytes Absolute Auto 1.6 X10*3/uL (1.2-4.9); Mean Corpuscular HGB Conc 33.8 g/dl (31.0-36.0); Mean Corpuscular Hemoglobin 27.9 pg (27.0-33.0); Mean Corpuscular Volume 82.6 fL (80.0-98.0); Mean Platelet Volume 9.7 fL (9.4-12.4); Monocytes Absolute Auto 0.3 X10*3/uL (0.1-1.2); Monocytes Percent Auto 5.1 % (2-11); Neutrophils Percent Auto 62.5 % (45-73); Platelet Count 269 X10*3/uL (160-400); Red Blood Count 4.94 X10*6/uL (4.60-5.80); Red Cell Distribution Width 13.2 % (11.0-16.0); White Blood Count 6.5 X10*3/uL (4.8-10.8)
[2023-07-19 09:41] LABS: Alanine Aminotransferase 14 U/L (0-40); Alkaline Phosphatase 82 U/L (39-117); Anion Gap 14 (12-20); Aspartate Amino Transferase 16 U/L (5-37); Bilirubin Total 0.7 mg/dL (0.0-1.0); Blood Urea Nitrogen 18 mg/dL (9-16); Calcium 9.1 mg/dL (8.4-10.2); Carbon Dioxide 21 mmol/L (22-29); Chloride 109 mmol/L (96-108); Estimated Glomerular Filt Rate > 60; Glucose Random 135 mg/dL (60-115); Potassium 3.4 mmol/L (3.3-5.1); Sodium 141 mmol/L (135-145); Total Protein 7.3 g/dL (6.5-8.0)
[2023-07-19 09:48] LABS: Troponin-I High Sensitivity 4.8 ng/L (<3.5-35.0)
[2023-07-19 10:55] VITALS: BP 139/83; PULSE 79; RESP 16; TEMP 36.6; O2SAT 96
== END 2023-07-19 11:02 | disposition home or self-care (01) ==
PROVIDERS: Emergency Provider Student in an Organized Health Care Education/Training Program; PCP Internal Medicine
DX: I10 Essential (primary) hypertension (principal); R51.9 Headache, unspecified; J45.20 Mild intermittent asthma, uncomplicated; Z79.899 Other long term (current) drug therapy
CPT/HCPCS: 36415; 70450; 80053; 84484; 85025; 93005; 99283; 99284

== ENCOUNTER → 2023-07-19 09:06 | Outpatient (BNV) | payer MEDICAID, SELFPAY | PROVIDERS: Emergency Provider Student in an Organized Health Care Education/Training Program; PCP Internal Medicine; Visit Provider Internal Medicine Cardiovascular Disease | DX: R94.31 Abnormal electrocardiogram [ECG] [EKG] (principal) | CPT/HCPCS: 93010 ==

== ENCOUNTER 2024-03-23 08:58 | Outpatient (AMB) | payer OTHER, SELFPAY ==
--- NOTE | 2024-03-23 09:18 | A.OFFPC_ITS ---
Vital Signs 03/23/24 09:19 Height 5 ft 8 in Weight 224 lb BMI 34.1 BP 130/80 Blood Pressure Location Lt brachial Position Sitting Intake Visit Reasons: follow up/ letter request Gear Grinding Machine Operator Required: Yes Gear Grinding Machine Operator Language: System Support Analyst Name: Madalyn Oliva MD Information Interpreted: non-clinical & clinical Accompanied by: Self / Same As Patient Allergies No Known Allergies Allergy (Verified 03/23/24 09:39) Medication List - Last Reconciled 03/23/24 by Madalyn Oliva MD cholecalciferol (vitamin D3) 50 mcg PO DAILY 90 days clonidine HCl 0.1 mg PO BID 90 days hydrochlorothiazide 25 mg PO DAILY 90 days ibuprofen 800 mg PO Q8H PRN 30 days sertraline 100 mg PO DAILY 90 days Ventolin HFA 90 mcg/actuation (albuterol sulfate) 2 puffs inhalation Q6H PRN 30 days NS Tobacco use date assessed: 03/23/24 Dental Screening Dental Screen Date: 03/23/24 Did you have a dental visit in the last 12 months?: Yes Did you have a dental problem in the last 6 months where you did not have access to dental care?: No Was dental information given to patient?: Patient has dentist HPI HPI Comments History of Present Illness Details The patient is a 49-year-old male presenting with chronic low back pain. The patient reports difficulty in lifting or even rising due to the pain, which affects the entire lower back. Symptoms intensity varies, but it can be significant enough that he feels unable to move effectively. No specific injury is noted as a cause. Discussion about starting physical therapy was initiated. The patient was also evaluated for depression, having been prescribed sertraline 100 mg daily. The patient experiences anxiety as well but is not currently seeing a mental health care provider. For the management of hypertension, the patient has been taking clonidine 0.1-0.2 mg twice daily and hydrochlorothiazide 25 mg. The patient also takes ibuprofen as needed for pain. In addition to the back pain related issues, tests were discussed to check upon other health parameters, and a referral to urology was considered for potential cystoscopy related to an unspecified condition. [facility] Medical History (Updated 03/23/24 @ 12:54 by Madalyn Oliva MD) HTN (hypertension) Mild recurrent major depression Obesity (BMI 30.0-34.9) Chest pain Encounter for physical examination Hypovitaminosis D Mild asthma Overweight (BMI 25.0-29.9) Depression with anxiety Surgical History No pertinent past surgical history Family History Father Prostate cancer Mother Asthma Social History Housing: Apartment Alcohol intake: former Patient Tobacco Use Status: Former Tobacco user Tobacco use type: Cigarette e-Cigarette/Vaping Use: Never Used Second Hand Smoke Exposure: No service: No Current occupational status: unemployed Cognitive needs: No Hearing needs: No Vision needs: No Questionnaire PHQ-9 Over the last 2 weeks, how often have you been bothered by any of the following problems? 1. Little interest or pleasure in doing things: several days 2. Feeling down, depressed, or hopeless: several days 3. Trouble falling or staying asleep, or sleeping too much: several days 4. Feeling tired or having little energy: several days 5. Poor appetite or overeating: several days 6. Feeling bad about yourself - or that you are a failure or have let yourself or your family down: not at all 7. Trouble concentrating on things, such as reading the newspaper or watching television: not at all 8. Moving or speaking so slowly that other people could have noticed. Or the opposite - being so fidgety or restless that you have been moving around a lot more than usual: not at all 9. Thoughts that you would be better off or of hurting yourself in some way: not at all Total score: 5 Depression Screening Interpretation: Positive Depression Screening Follow-up: Existing condition, In treatment and Follow-up Visit Requested Depression Screening Done: Yes 08884 - PHQ-9 Billing: Yes Source: Developed by Drs. Kenn Sam, Erica Tapia, Sung Nunez and colleagues, with an educational ahsan from [employer]. Thrive Questionnaire Date Thrive assessed: 03/23/24 I am a: Patient What is your living situation today?: I have a steady place to live Within the past 12 months, did the food you bought not last and you didn't have the money to get more?: Never true Within the past 12 months, did you worry whether your food would run out before you got money to buy more?: Never true Do you have trouble paying for medicines?: No Do you have trouble getting transportation to medical appointments?: No Do you have trouble paying your heating and electricity bill?: No Do you have trouble taking care of your child, family member or friend?: No Do you have trouble with day-to-day activities such as bathing, preparing meals, shopping, managing finances, etc.?: No Are you currently unemployed and looking for a job?: No Are you interested in more education?: No Please select the resources that you would like help with: None Currently or been in a relationship where the following occur: No concerns reported THRIVE Score: 0 AUDIT C Alcohol Use Questionnaire (AUDIT-C) 1. How often do you have a drink containing alcohol?: Never Total Score: 0 Score Reviewed/Action Taken: No SIRISHA-7 AMB Questionnaire SIRISHA-7 Date SIRISHA - 7 assessed: 03/23/24 Feeling nervous, anxious, or on edge: 1 = Several days Not being able to stop or control worryin = Not at all Worrying too much about different things: 1 = Several days Trouble relaxin = Several days Being so restless that it is hard to sit still: 0 = Not at all Becoming easily annoyed or irritable: 1 = Several days Feeling afraid as if something awful might happen: 0 = Not at all Total SIRISHA-7 score (0-4 normal; 5-9 mild; 10-14 moderate; 15-21 severe): 4 Source: Developed by Drs. Kenn Sam, Erica Tapia, Sung Nunez and colleagues, with an educational ahsan from [employer]. SIRISHA-7 Assessment Billing SIRISHA-7 Assessment Tool: SIRISHA-7 Assessment 55089 Review of Systems Const All systems reviewed & are unremarkable except as noted in HPI and below Card Denies chest pain at rest, Denies chest pain with activity, Denies edema, Denies irregular heart rhythm, Denies claudication, Denies dyspnea, Denies dyspnea on exertion, Denies orthopnea, Denies paroxysmal nocturnal dyspnea and Denies slow heart rate Resp Denies cough, Denies dyspnea and Denies dyspnea on exertion Physical exam (Primary Care) Vital Signs: Last Vital Signs BP 130/80 03/23/24 09:19 BMI result Body Mass Index 34.1 BMI Assessment/Plan discussion: High BMI High, discussed plan: lifestyle, weight reduction, dietary and physical activity Tobacco/Smoking Status: Tobacco use Status Tobacco use date assessed 03/23/24 03/23/24 09:25 Patient Tobacco Use Status Former Tobacco user 03/23/24 09:22 Tobacco use type Cigarette 03/23/24 09:22 e-Cigarette/Vaping Use Never Used 03/23/24 09:22 PHQ-9: PHQ-9 Score PHQ-9: Total score 5 03/23/24 09:44 Depression Screening Interpretation: Positive Depression Screening Follow-up: Existing condition, In treatment and Follow-up Visit Requested Thrive Assessment: Date of Thrive Assessment Date Thrive assessed 03/23/24 03/23/24 09:25 Currently or been in a relationship where the following occur: No concerns reported Resp Effort & Inspection: normal respiratory effort Auscultation: clear to auscultation bilaterally Cardio Jugular venous distension: no JVD Rate: regular rate Rhythm: regular rhythm Heart sounds: S1 normal heart sound present and S2 normal heart sound present Extrem General: Yes full ROM Office Procedures Flu Questionnaire Does the patient have a severe egg allergy?: No Immunizations Fluarix Triv [id number] (PF) 45 mcg (15 mcg x 3)/0.5 mL IM syringe Performing Provider: Madalyn Oliva MD [place] [facility] [place] [facility] [place] [facility] Documented (not given) by: CYN Zaman on 03/23/24 09:22 Reason Not Given: Patient Refused Coding Level of Care Code Est Pt Level 4 (49691) Complex EM visit Add On G2211 Diagnoses Urinary dribbling N39.43 Lumbar pain M54.50 Moderate recurrent major depression F33.1 SIRISHA (generalized anxiety disorder) F41.1 HTN (hypertension) I10 Additional Codes SIRISHA-7 Assessment Billing - SIRISHA-7 Assessment Tool: SIRISHA-7 Assessment 41488 ([id number]) PHQ-9 - 09508 - PHQ-9 Billing: Yes ([id number]) Time Spent (min) 22 Assessment & Plan Assessment & Plan (1) Urinary dribbling: Code(s): N39.43 - Post-void dribbling Category: Medical (2) Lumbar pain: Code(s): M54.50 - Low back pain, unspecified Category: Medical (3) Moderate recurrent major depression: Code(s): F33.1 - Major depressive disorder, recurrent, moderate Category: Medical (4) SIRISHA (generalized anxiety disorder): Code(s): F41.1 - Generalized anxiety disorder Category: Medical (5) HTN (hypertension): Code(s): I10 - Essential (primary) hypertension Category: Medical Plan - Initiate referral to physical therapy for chronic low back pain. - Continue current medications for hypertension and depression: clonidine, hydrochlorothiazide, and sertraline as prescribed. - Consider referral to urology for further evaluation, including potential cystoscopy. - Order fasting blood work and imaging for further diagnosis. - Discuss the potential need to explore and manage alcohol consumption and possible impacts on overall health. Patient was informed and verbally consented to the use of an ambient scribe for clinic note documentation during this visit. I discussed with the patient the management of his chronic low back pain and the potential benefits of physical therapy. We reviewed his current medication regimen and affirmed he should continue with clonidine, hydrochlorothiazide, ibuprofen as needed, and sertraline. Additionally, we explored the potential referral to urology for further assessment of any urinary issues that might relate to his ongoing symptoms. I provided information about lab work that should be done fasting to monitor other health areas potentially affected by his current conditions. We touched upon wellness aspects and agreed to monitor any alcohol use that might affect therapy or health outcomes. Follow-up was discussed to reassess the effectiveness of the ongoing treatment plan and make necessary adjustments. Orders: Orders XR lumbar spine 2-3V Today M54.50 - Low back pain, unspecified Lipid Panel Today E78.5 - Hyperlipidemia, unspecified Vitamin D 25-OH Total Today E55.9 - Vitamin D deficiency, unspecified Influenza [id number] Immunization Today Z23 - Encounter for immunization PT Evaluation and Treatment Today M54.50 - Low back pain, unspecified Comprehensive [place]. Panel Fast Today E66.9 - Obesity, unspecified Referrals Urology Referral N39.43 - Post-void dribbling Patient Instructions: - Continue taking prescribed medications: clonidine, hydrochlorothiazide, and sertraline. - Attend physical therapy sessions as scheduled. - Fast before upcoming lab work. - Follow up with urology as scheduled. - Consider moderation in alcohol consumption. - Schedule subsequent appointments to review treatment efficacy.
[2024-03-23 09:19] VITALS: BP 130/80; BMI 34.1
== END 2024-03-23 09:49 | disposition home or self-care (01) ==
PROVIDERS: PCP Internal Medicine; Visit Provider Internal Medicine
DX: N39.43 Post-void dribbling (principal); M54.50 Low back pain, unspecified; F33.1 Major depressive disorder, recurrent, moderate; F41.1 Generalized anxiety disorder; I10 Essential (primary) hypertension; Z23 Encounter for immunization

== ENCOUNTER → 2024-03-23 08:58 | Outpatient (BNVA) | payer OTHER, SELFPAY | PROVIDERS: PCP Internal Medicine; Visit Provider Internal Medicine | DX: M54.50 Low back pain, unspecified (principal); N39.43 Post-void dribbling; F33.1 Major depressive disorder, recurrent, moderate; F41.1 Generalized anxiety disorder; I10 Essential (primary) hypertension; E55.9 Vitamin D deficiency, unspecified; E66.9 Obesity, unspecified; Z28.21 Immunization not carried out because of patient refusal; Z68.34 Body mass index [BMI] 34.0-34.9, adult | CPT/HCPCS: 90471; 96127; 99212 ==

== ENCOUNTER 2024-03-25 08:09 | Outpatient (REF) | payer OTHER, SELFPAY ==
--- NOTE | ~2024-03-25 | XR_ITS ---
EXAMINATION: XR LUMBAR SPINE 2-3 VIEWS HISTORY: M54.50 - Low back pain, unspecified COMPARISON: Comparison is made with the prior examination dated 10/30/2017. FINDINGS: AP, lateral, and coned down views of the lumbar spine are submitted. Osseous mineralization is normal. Five nonrib-bearing lumbar vertebral bodies are identified, maintaining normal height and alignment without evidence of fracture or spondylolisthesis. There is mild degenerative disc disease at T11-12 and L2-3 with disc space narrowing and osteophyte formation. The posterior elements are intact. The visualized paraspinal soft tissues are unremarkable. XR/XR lumbar spine 2-3V IMPRESSION: Degenerative changes as described. Electronically signed by: Kenn Sweeney MD 03/26/2024 08:28 AM ROSS
[2024-03-25 10:40] LABS: Albumin Level 4.1 g/dL (3.5-5.0); Anion Gap 10 (12-20); Aspartate Amino Transferase 22 U/L (5-37); Bilirubin Total 0.4 mg/dL (0.0-1.0); Blood Urea Nitrogen 17 mg/dL (9-16); Calcium 9.1 mg/dL (8.4-10.2); Carbon Dioxide 30 mmol/L (22-29); Chloride 106 mmol/L (96-108); Cholesterol 205 mg/dL (<200); Estimated Glomerular Filt Rate > 60; Glucose Fasting 102 mg/dL (60-99); HDL Cholesterol 40 mg/dL (>40); LDL Cholesterol Calculated 138 mg/dL (<100); Potassium 3.9 mmol/L (3.3-5.1); Sodium 142 mmol/L (135-145); Total Protein 7.8 g/dL (6.5-8.0); Triglycerides 139 mg/dL (<150)
[2024-03-25 11:08] LABS: Vitamin D 25-OH Total 23.8 ng/mL (>30)
[2024-03-25 11:17] LABS: Alanine Aminotransferase 23 U/L (0-40); Alkaline Phosphatase 61 U/L (39-117)
== END 2024-03-25 08:10 | disposition home or self-care (01) ==
LOC: HO.XRAY 08:09
PROVIDERS: PCP Internal Medicine; Visit Provider Internal Medicine
DX: M54.50 Low back pain, unspecified (principal); E66.9 Obesity, unspecified; E55.9 Vitamin D deficiency, unspecified; E78.5 Hyperlipidemia, unspecified
CPT/HCPCS: 36415; 72100; 80053; 80061; 82306

== ENCOUNTER → 2024-03-25 08:47 | Outpatient (BNV) | payer OTHER, SELFPAY | PROVIDERS: PCP Internal Medicine; Visit Provider Radiology Diagnostic Radiology | DX: M54.50 Low back pain, unspecified (principal) | CPT/HCPCS: 72100 ==

== ENCOUNTER 2024-05-18 09:00 | Outpatient (RCR) | payer OTHER, SELFPAY ==
--- NOTE | 2024-04-19 12:23 | MHC.PT.EP ---
[facility] [place] Office [place] Office [place] Office [address] Rylan Pollard [address] [phone] F: [phone] F: [phone] F: [phone] F: [phone] Physical Therapy Plan of Care Date of Evaluation: 04/19/24 Date of Surgery: Diagnosis: LBP/ LUMBAR Assessment: 49 YO MALE REF TO PT WITH 1 YR H/O LBP, PROGRESSIVE- HE NOTES HE HAS BEEN UNEMPLOYED x 5 YRS, TAKING CARE OF HIS . HE HAS DECR POSTURAL AWARENESS, LIMITED HIP/ TRUNK FLEXIB/ ROM, (+) TISSUE TENSION IN LOWER THOR/PROX LUMBAR REGION, (-) MOTOR SENSORY DEFICITS, AND (+) PAIN IN UPPER LUMBAR AREA IMPACTING FUNCTION-> HE DENIES BOWEL/BLADDER SIGNS/SXS. FUNCTIONALLY, JESI NOTES DIFFIC W SIT<-> STAND TRANSITIONS, DECR STANDING/ WALKING ERVIN, LIMITED SQUAT MECHANICS AND ALTERED GAIT. JESI IS A GOOD CANDIDATE FOR SKILLED PT TO ADDRESS THE ABOVE AND DEV A HEP FOR INCR SX MGMT . Frequency and Duration: The patient will be seen 2 x WK x 5 WKS Short Term Goals: *INITIATE HEP TO IMPROVE LE PROPRIOCEPTION/ LUMBOPELVIC STABILITY *Pt'S LB PAIN DECR TO 2-3/10 *INCR FLEXIB IN PSOAS/HIP IR/ CALF MM *IMPROVE FUNCT SQUAT MECHANICS INCR ACTIV OF QUADS/ GLUTES Administrative Accountant Goals: *Pt DEMON APPROP BODY MECH W SIMUL TASKS *Pt WILL IMPROVE LUMBOPELVIC/ Lt LE STRENGTH TO AT LEAST 5-/5 *Pt INDEP W PROGRESSIVE HEP AND SELF-SX MGMT TECHN Pt RESUME REG ADLs / FITNESS WALKING , EVIDENT W IMPROVED OSWESTRY SCORE (AT EVAL 29/50 ) Treatment Plan: Modalities to reduce pain, spasms and effusion. Manual therapy to restore motion and function. Therapeutic exercise to improve strength and flexibility. Neuromuscular re-education for posture and balance. Therapeutic activities to return to functional activities of daily living. Electronically signed by: VLADIMIR POMPA,PT Please sign and return to therapist. Thank you for your referral.
--- NOTE | 2024-07-30 15:10 | MHC.PT.DC ---
[facility] [place] [facility] [place] Office [place] Office [address] Rylan Pollard 140 [facility] [phone] F: [phone] F: [phone] F: [phone] F: [phone] Physical Therapy Discharge Report Diagnosis: LBP/ LUMBAR Date of Surgery: Date of Evaluation: 04/21/24 Date of Discharge: 07/30/24 Treatments to Date: 5 Cancellations to Date: 2 No Shows to Date: 2 Discharge Status: Improved Function Patient Elected to Stop Visit Non-compliance Discharge Summary: JESI WAS PROGRESSING IN PT- HE UNFORTUNATELY DID NOT ATTEND HIS LAST SCHED APPTS, AND, THEREFORE A FORMAL REASSESSMENT WAS NOT PERF- HE IS D/C PER DEPT ATTENDANCE POLICY. Electronically signed by: VLADIMIR POMPA, PT Please sign and return to therapist. Thank you for your referral.
== END 2024-07-30 15:13 | disposition home or self-care (01) ==
LOC: HO.PT 09:00
PROVIDERS: PCP Internal Medicine; Visit Provider Internal Medicine
DX: M54.50 Low back pain, unspecified (principal)
CPT/HCPCS: 97110; 97140; 97162

== ENCOUNTER 2024-05-19 14:41 | Outpatient (AMB) | payer OTHER, SELFPAY ==
--- NOTE | 2024-05-19 14:49 | A.OFFVIS_ITS ---
Intake Visit Reasons: post void dribbling Intake Note: Patient is present for POST VOID DRIBBLING Urology Medication:NONE Antibiotic Allergy:NONE Blood Thinner:NONE TODAY'S PVR:21ML'S Hardware Press Operator Required: No Hardware Press Operator Services: Hardware Press Operator Present Hardware Press Operator Name: Dmitry [id number] Allergies No Known Allergies Allergy (Verified 05/19/24 15:22) Medication List - Last Reconciled 05/19/24 by VAISHNAVI Byunm clonidine HCl 0.1 mg PO BID 90 days meloxicam 15 mg PO DAILY 30 days Ventolin HFA 90 mcg/actuation (albuterol sulfate) 2 puffs inhalation Q6H PRN 30 days NS HPI Comments Details: Gael is a very pleasant 49-year-old Welsh-speaking male patient of Dr. Carter. He has a past medical history of hypertension, depression, obesity, and asthma. He presents to the office today as a new patient for ongoing lower urinary tract symptoms he has been experiencing. In discussion with the patient today he reports for many years he has experienced urinary urgency and frequency and most recently has been experiencing episodes of urge incontinence. He also discusses his longstanding history of premature ejaculation. In office urinalysis results reviewed with the patient today. PVR 21 mL. We discussed potential causes of these urological issues and concerns. We discussed further workup to include retroperitoneal ultrasound for further assessment evaluation. We discussed lifestyle modifications to assist with lower urinary tract symptoms as well as premature ejaculation. In review of patient's chart it appears PSAs are as follows: PSA: 04/29 0.3 He otherwise denies hematuria, dysuria, foul smelling urine, changes to urinary stream, flank pain, fever, and or chills. SHAILA offered however deferred. Otherwise offers no other issues or concerns at this time. [facility] Medical History HTN (hypertension) Mild recurrent major depression Obesity (BMI 30.0-34.9) Chest pain Encounter for physical examination Hypovitaminosis D Mild asthma Overweight (BMI 25.0-29.9) Depression with anxiety Surgical History No pertinent past surgical history Family History Father Prostate cancer Mother Asthma Social History Housing: Apartment Alcohol intake: former Patient Tobacco Use Status: Former Tobacco user Tobacco use type: Cigarette e-Cigarette/Vaping Use: Never Used Second Hand Smoke Exposure: No service: No Current occupational status: unemployed Cognitive needs: No Hearing needs: No Vision needs: No Review of Systems Const All systems reviewed & are unremarkable except as noted in HPI and below Physical Exam Const General: cooperative, healthy appearing, comfortable, no acute distress, well developed, alert and awake Nutritional Appearance: overweight Orientation/consciousness: patient oriented x3 Limitations: no limitations HEENT Head: Yes normal to inspection, Yes normocephalic and Yes atraumatic Ears: hearing grossly normal bilaterally Eyes General: appearance normal, both eyes and all related structures Neck Neck: Yes normal visual inspection and Yes trachea midline Chest Chest palpation & inspection: normal inspection of the chest Resp Effort & Inspection: normal respiratory effort and able to speak in complete sentences Cardio Rate: regular rate GI Inspection: Yes normal to inspection General: Yes no CVA tenderness Back/Spine/Pelvis Back: no CVA tenderness Skin General skin exam: no rashes or lesions noted Neuro General: patient oriented x3 Extrem General: Yes normal to inspection Psych Appearance: grossly normal and well kempt Mental Status: mental status grossly normal Speech and movement: Normal speech and movement present and Clear speech present Affect: normal affect Attitude: cooperative Thought process: Normal thought process present Thought content: Normal thought content present Insight: Fair insight present (Psych) Judgement: Fair judgement present (Psych) Office Procedures Post Void Residual Post Residual Void Post Void Residual (PVR): 21 [id number] Void Residual by ultrasound Results AMB Urinalysis, Automated UA Leukoctes 0 Jackson/uL Last Edit by JIGNESH Silver on 05/19/24 14:59 UA Nitrite Negative Last Edit by JIGNESH Silver on 05/19/24 14:59 UA Urobilinogen 3.5 mg/dL Last Edit by JIGNESH Silver on 05/19/24 14:5 9 UA Protein 15 mg/dL Last Edit by JIGNESH Silver on 05/19/24 14:59 UA pH 6.0 Last Edit by JIGNESH Silver on 05/19/24 14:59 UA Blood 0 Eligio/uL Last Edit by JIGNESH Silver on 05/19/24 14:59 UA Specific [place] 1.015 Last Edit by JIGNESH Silver on 05/19/24 14: 59 UA Ketone Negative Last Edit by JIGNESH Silver on 05/19/24 14:59 UA Bilirubin 0 mg/dL Last Edit by JIGNESH Silver on 05/19/24 14:59 UA Glucose 0 mg/dL Last Edit by JIGNESH Silver on 05/19/24 14:59 Quality Reporting (2019) Adult ([facility] 138/05/01/68) Smoking risk assessment performed?: Yes Patient Tobacco Use Status: Former Tobacco user Results Reviewed Results Reviewed: Laboratory Last Values Urine pH (Auto) 6.0 05/19/24 14:58 Specific [place] (Auto) 1.015 05/19/24 14:58 Urine Protein (Auto) 15 mg/dL 05/19/24 14:58 Glucose (UA)(Auto) 0 mg/dL 05/19/24 14:58 Urine Ketones (Auto) Negative 05/19/24 14:58 Urine Blood (Auto) 0 Eligio/uL 05/19/24 14:58 Urine Nitrite (Auto) Negative 05/19/24 14:58 Urine Bilirubin (Auto) 0 mg/dL 05/19/24 14:58 Urine Urobilinogen (Auto) 3.5 mg/dL 05/19/24 14:58 Leukocyte Esterase (Auto) 0 Jackson/uL 05/19/24 14:58 Assessment & Plan Assessment & Plan (1) Urinary incontinence, urge: Code(s): N39.41 - Urge incontinence Category: Medical (2) Urinary urgency: Code(s): R39.15 - Urgency of urination Category: Medical (3) Urinary frequency: Code(s): R35.0 - Frequency of micturition Category: Medical (4) Premature ejaculation: Code(s): F52.4 - Premature ejaculation Category: Medical Plan In office urinalysis results reviewed with the patient today; as noted above. PVR 21 mL. Will obtain retroperitoneal ultrasound for further assessment evaluation. We discussed bladder triggers/irritants. We discussed lifestyle modifications to assist with lower urinary tract symptoms as well as premature ejaculation. We discussed further workup to include retroperitoneal ultrasound as well as PSA. SHAILA offered however deferred. We discussed OTC duration Follow-up in 3 months with imaging, lab and PVR; or sooner with any issues, concerns, and or questions. Orders: Orders AMB Urinalysis Automated Today Z13.9 - Encounter for screening, unspecified US retroperitoneal comp Today F52.4 - Premature ejaculation, N39.41 - Urge incontinence, R35.0 - Frequency of micturition, R39.15 - Urgency of urination Prostate Specific Antigen Today N39.41 - Urge incontinence, R35.0 - Frequency of micturition, R39.15 - Urgency of urination Patient Instructions: The patient had an opportunity to ask questions regarding the treatment plan. All questions were answered. Physical exam, labs, and imaging were discussed and reviewed in detail. As well as risks, benefits, and discussion of treatment choices. No major barriers to understanding were identified. The patient expressed understanding and agreement with the above treatment plan. The patient was made aware they should contact our office by phone for worsening of their current condition, the appearance of new symptoms, or with any questions or concerns. Compliance is encouraged with any medications and follow up testing that is ordered. It is a privilege to be allowed the opportunity to participate in? your urological care.? Again, if you have any questions or concerns If you have any questions or concerns please do not hesitate to contact me. The office is [phone]. This note is constructed using voice recognition software. While every effort has been made to ensure accuracy orange grower errors may have been included. Yours sincerely, SUSIE Bynum- Coding Level of Care Code New Pt Level 3 (23479) Diagnoses Urinary incontinence, urge N39.41 Urinary urgency R39.15 Urinary frequency R35.0 Premature ejaculation F52.4 CPT Codes Post Residual Void - PVR CPT Code: 63997-Fira Void Residual by ultrasound ([id number])
--- OUTSIDE RECORDS SUMMARY | 2024-05-19 17:19 | XMS_ITS | Encounter Summary ---
Author Organization [facility] Address [address] [place] [address] Care Team Providers Care Electrical Engineering Designer Name Role Phone Unavailable Primary Care Provider Unavailabl e Encounter Details Date Type Department Care Team (Late st Contact Info) Description 05/10/2022 Abstract [facility] [address], [place] [id number] Geraldo Gotti, ANA [address], [place] [id number] Social History Tobacco Use Types Packs/Day Years Used Date Smoking Tobacco: Never Assessed Sex and Gender Information Value Date Recorded Sex Assigned at Male 01/07/2022 10:20 AM EDT Legal Sex Male 10:20 AM EDT Gender Identity Male 01/07/2022 10:20 AM EDT Sexual Orientation Straight 01/07/2022 10 :20 AM EDT COVID-19 Exposure Response Date Recorded In the last 10 days, have yo u been in contact with someone who was confirmed or suspected to have Coronavirus/COVID-19? No / Unsure 05/01/2022 12:25 PM EST documented as of this encounter Plan of Treatment Not on file documented as of this encounter Visit Diagnoses Not on filedocumented in this encounter
--- OUTSIDE RECORDS SUMMARY | 2024-05-19 17:19 | XMS_ITS | Encounter Summary ---
Author Organization [employer] [facility] Address [address] [place] [address] Care Team Providers Care Door Serviceman Name Role Phone Unavailable Primary Care Provider Unavailabl e Encounter Details Date Type Department Care Team (Latest Contact Info) Description 06/15/2020 Abstract [facility] CONVERSION[facility] Dental, Provider, DDS Social History Tobacco Use Types Packs/Day Years Used Date Smoking Tobacco: Never Assessed Sex and Gender Information Value Date Recorded Sex Assigned at Male 01/07/2022 10:20 AM EDT Legal Sex Male 10:20 AM EDT Gender Identity Male 01/07/2022 10:20 AM EDT Sexual Orientation Straight 01/07/2022 10 :20 AM EDT documented as of this encounter Plan of Treatment Not on file documented as of this encounter Visit Diagnoses Not on filedocumented in this encounter
--- OUTSIDE RECORDS SUMMARY | 2024-05-19 17:19 | XMS_ITS | Clinical Summary ---
Author Organization [employer] Address [address] [place] [address] [address]t [place] [address] Care Team Providers Care Folder Taper Operator Name Role Phone Unavailable Primary Care Provider Unavailabl e Allergies No known active allergies Medications Ventolin HFA 108 (90 Base) MCG/ACT inhaler INHALE 2 PUFFS CADA SEIS HORAS CUANDO SEA NECESARIO PARA LA FALTA DE RESPIRACI N OR WHEEZING 3 Active cloNIDine (Catapres) 0.1 MG tablet TOME YAMILET TABLETA DOS VECES AL D A CUANDO SEA NECESARIO 3 Active hydrocortisone 2.5 % cream APLIQUE AL HENRI AFECTADA TOPICALLY PAMELLA VECES AL D A CUANDO SEA NECESARIO FOR ITCHING 3 Active sertraline (Zoloft) 100 MG tablet TOME YAMILET TABLETA POR V A ORAL TODOS LOS D 3 Active cyclobenzaprine (Flexeril) 10 MG tablet TOME YAMILET TABLETA PAMELLA VECES AL D A PARA EL ESPASMO MUSCULAR CUANDO SEA NECESARIO 3 Active cholecalciferol (Vitamin D-3) 50 MCG (1999 UT) capsule TOME 1 C PSULA POR V A ORAL TODOS LOS D 3 Active hydroCHLOROthia zide (HYDRODiuril) 25 MG tablet Take 25 mg by mouth Once per day. 4 Active acetaminophen (Tylenol) 500 MG tablet Take 1 tablet (500 mg) by mouth every 6 (six) hours if needed for mild pain for up to 20 doses. 20 tablet 4 Active ibuprofen 600 MG tablet Take 1 tablet (600 mg) by mouth every 6 (six) hours if needed for mild pain for up to 20 doses. 20 tablet 4 Active Active Problems Problem Noted Date Diagnosed Date Retained dental root 01/01/2024 Dental abscess 01/01/2024 Dental calculus 10/09/2022 Encounters Date Type Department Care Team Description 03/08/2024 9:15 AM EST Office Visit [facility] [address] [place] [address] Meghan Javier DMD from Last 3 Months Social History Tobacco Use Types Packs/Day Years Used Date Smoking Tobacco: Never Smokeless Tobacco: Never Tobacco Cessation:Counseling Given: Not Answered Alcohol Use Standard Drinks/Week Comments Never 0 (1 standard drink = 0.6 oz pur e alcohol) Sex and Gender Information Value Date Recorded Sex Assigned at Male 01/07/2022 10:20 AM EDT Legal Sex Male 10:20 AM EDT Gender Identity Male 01/07/2022 10:20 AM EDT Sexual Orientation Straight 01/07/2022 10 :20 AM EDT Last Filed Vital Signs Vital Sign Reading Time Taken Comments Blood Pressure 130/80 03/08/2024 8:57 AM EST Pulse 73 03/08/2024 8:57 AM EST Temperature - - Respiratory Rate - - Oxygen Saturation - - Inhaled Oxygen Concentration - - Weight - - Height - - Body Mass Index - - Plan of Treatment Health Maintenance Due Date Last Done Comments CT Colonography 1975 Colonoscopy 1975 Colorectal Cancer Screening 1975 Depression Screening 1975 FIT DNA/Cologuard 1975 FIT 1975 FOBT 1975 HIV Screening 1975 Lipid Panel 1975 SDOH Screening 1975 Sigmoidoscopy 1975 Alcohol/Substance Use Screening 1987 Family Planning (PISQ) 1990 Hepatitis C Screening 1993 Hepatitis B Vaccines (1 of 3 - 19+ 3-dose series) 1994 COVID-19 Vaccine (2023-2 5 season) 2023 Influenza Vaccine (#1) 2023 12/14/2018 Dental Oral Exam 07/16/2024 01/16/2024, 12/14/2021 Dental Prophylaxis 07/16/2024 01/16/2024, 10/09/2022 Dental X-Ray: Bitewings 01/16/2025 01/16/20 24, 10/09/2022, 12/14/2021 Tobacco Screening 03/08/2025 03/08/2024 Zoster Vaccines (1 of 2) 2025 Dental X-Ray: Full Mouth 01/16/2027 024, 05/24/2020 DTaP/Tdap/Td Vaccines (4 - T d or Tdap) 05/16/2031 05/15/2021, 12/14/2018, 06/26/2011 RSV Patients and Patients Aged 60 years or older (1 - 1-dose 75+ series) 2050 HIB Vaccines Aged Out No longer eligi ble based on patient's age to complete this topic HPV Vaccines Aged Out No longer eligi ble based on patient's age to complete this topic Hepatitis A Vaccines Aged Out No long er eligible based on patient's age to complete this topic IPV Vaccines Aged Out No longer eligi ble based on patient's age to complete this topic Meningococcal Vaccine Aged Out No isaac esthela eligible based on patient's age to complete this topic Pneumococcal Vaccine: Pediatrics (0 to 5 Years) and At-Risk Patients (6 to 49) Years) Aged Out No longer eligible b ased on patient's age to complete this topic RSV under 20 months Aged Out No longe r eligible based on patient's age to complete this topic Rotavirus Vaccines Aged Out No longer eligible based on patient's age to complete this topic Procedures Procedure Name Priority Date/Time Associated Diagnosis Comments CASE PRESENTATION, DETAILED AND EXTENSIVE TREATMENT PLANNING Routine 03/08/2024 9:15 AM EST CONSULTATION - DIAGNOSTIC SERVICE PROVIDED BY DENTIST OR PHYSICIAN OTHER THAN REQUESTING DENTIST OR PHYSICIAN Routine 03/08/2024 9:15 AM EST PROPHYLAXIS - ADULT Routine 01/16/2024 1 :00 PM EST Dental calculus Dental plaque Tartar deposits on teeth INTRAORAL - COMPLETE SERIES OF RADIOGRAPHIC IMAGES Routine 01/16/2024 1:00 PM EST PERIODIC ORAL EVALUATION - ESTABLISHED PATIENT Routine 01/16/2024 1:00 PM EST from Last 3 Months or Most Recently Relevant to Health Maintenance Insurance [facility] MEDICAID STAND ADULT Member Subscriber Plan / Payer (Ef fective 2022-Present) Name:Nazario Viridiana Gael Relation to Subscriber:Self Name:Gael Jorge Payer ID:Not on file Group ID:Not on file Type:Not on file Address: [place] [id number]
--- OUTSIDE RECORDS SUMMARY | 2024-05-19 17:19 | XMS_ITS | Encounter Summary ---
Author Organization [email or web address] [facility] Address [address] [place] [address] Care Team Providers Care Research Phlebotomist Name Role Phone Unavailable Primary Care Provider Unavailabl e Encounter Details Date Type Department Care Team (Latest Contact Info) Description 05/24/2019 Abstract [facility] CONVERSIONS Dental, Provider, DDS Social [...]
--- OUTSIDE RECORDS SUMMARY | 2024-05-19 17:19 | XMS_ITS | Encounter Summary ---
Author Organization [employer] [facility] Address [address] [place] [address] Care Team Providers Care Rod Puller Name Role Phone Unavailable Primary Care Provider Unavailabl e Reason for Visit * Reason Onset Date Comments crown appt 09/24/2022 Encounter Details Date Type Department Care Team (Late st Contact Info) Description 09/24/2022 Telephone [facility] ADULT D[facility]AL [address] [place] [address] Geraldo Gotti, DMD [address] [place] [address] crown appt Social History Tobacco Use Types Packs/Day Years Used Date Smoking Tobacco: Never Smokeless Tobacco: Never Alcohol Use Standard Drinks/Week Comments Yes 0 (1 standard drink = 0.6 oz pur e alcohol) Sex and Gender Information Value Date Recorded Sex Assigned at Male 01/07/2022 10:20 AM EDT Legal Sex Male 10:20 AM EDT Gender Identity Male 01/07/2022 10:20 AM EDT Sexual Orientation Straight 01/07/2022 10 :20 AM EDT documented as of this encounter Miscellaneous Notes * Telephone Encounter - Sera Sahu - 09/24/2022 10:00 AM EDT Patient called in checking in on status of crown with Dr. Gotti. On waiting list since May DR documented in this encounter Plan of Treatment Not on file documented as of this encounter Visit Diagnoses Not on filedocumented in this encounter
--- OUTSIDE RECORDS SUMMARY | 2024-05-19 17:19 | XMS_ITS | Encounter Summary ---
Author Organization [employer] [facility] Address [address] [place] [address] Care Team Providers Care Hvac Tech Name Role Phone Unavailable Primary Care Provider Unavailabl e Encounter Details Date Type Department Care Team (Latest Contact Info) Description 12/14/2021 Abstract [facility] CONVERSIONS Dental, Provider, DDS Social [...]
== END 2024-05-19 15:32 | disposition home or self-care (01) ==
LOC: HO.HUSH 14:42
PROVIDERS: PCP Internal Medicine; Visit Provider Nurse Practitioner Family
DX: N39.41 Urge incontinence (principal); R39.15 Urgency of urination; R35.0 Frequency of micturition; F52.4 Premature ejaculation; Z13.9 Encounter for screening, unspecified
CPT/HCPCS: 99203

== ENCOUNTER → 2024-05-19 14:41 | Outpatient (BNVA) | payer OTHER, SELFPAY | PROVIDERS: PCP Internal Medicine; Visit Provider Nurse Practitioner Family | DX: N39.41 Urge incontinence (principal); R39.15 Urgency of urination; R35.0 Frequency of micturition; F52.4 Premature ejaculation | CPT/HCPCS: 51798; 81003; 99202 ==

== ENCOUNTER 2024-06-02 16:58 | Outpatient (AMB) | payer OTHER, SELFPAY ==
[2024-06-02 17:27] VITALS: BP 122/70; BMI 33.3
--- NOTE | 2024-06-02 17:27 | MHC.PC.OV ---
Vital Signs 06/02/24 17:27 Height 5 ft 8 in Weight 219 lb BMI 33.3 BP 122/70 Blood Pressure Location Lt brachial Position Sitting Intake Visit Reasons: PE Intake Note: Patient here for a physical exam Chartered Wealth Manager Required: No Accompanied by: Self / Same As Patient Allergies No Known Allergies Allergy (Verified 06/02/24 18:19) Medication List - Last Reconciled 06/02/24 by Madalyn Oliva MD clonidine HCl 0.1 mg PO BID 90 days meloxicam 15 mg PO DAILY 30 days sertraline 100 mg PO DAILY 90 days Ventolin HFA 90 mcg/actuation (albuterol sulfate) 2 puffs inhalation Q6H PRN 30 days NS Tobacco use date assessed: 03/23/24 Dental Screening Dental Screen Date: 03/23/24 HPI HPI Comments History of Present Illness Details The patient is a 49-year-old male presenting for a wellness visit and management of chronic conditions, including essential hypertension, hyperlipidemia, and depression. He reports a history of essential hypertension for which he takes hydrochlorothiazide. He presents with hyperlipidemia with cholesterol previously recorded at an elevated level of 5.9%. Medication to manage this has been prescribed, and dietary adjustments are underway. He avoids egg yolks and incorporates high-fiber foods based on prior guidance. The patient indicates a history of depression managed with Sertraline, and has undergone colonoscopy screenings, with the last one revealing a hyperplastic polyp in 2022, suggesting a considerative rescreening in ten years. He mentions fall-related lower back pain, worsening with specific movements, attributing pain to past incidents of falling on ice. He notes a family history of prostate cancer and maternal asthma, with an absence of smoking and alcohol consumption for several years. His depression is noted and is under control with current medication and lifestyle changes. - Screening for hyperlipidemia: Ongoing management with dietary advice and medication plan. - Colonoscopy performed in 2022: A hyperplastic polyp detected; next screen recommended in 10 years. - Discussion of diet: High fiber intake encouraged for cholesterol management. - Risk assessment for Coronary Artery Disease: 5.9% risk discussed. - Back pain management: Physical therapy and support advice provided. 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 HTN (hypertension) Obesity (BMI 30.0-34.9) Chest pain Encounter for physical examination Hypovitaminosis D Mild asthma Overweight (BMI 25.0-29.9) Depression with anxiety Surgical History No pertinent past surgical history Family History Father Prostate cancer Mother Asthma Social History Housing: Apartment Alcohol intake: former Patient Tobacco Use Status: Former Tobacco user Tobacco use type: Cigarette e-Cigarette/Vaping Use: Never Used Second Hand Smoke Exposure: No service: No Current occupational status: unemployed Cognitive needs: No Hearing needs: No Vision needs: No Questionnaire PHQ-9 Over the last 2 weeks, how often have you been bothered by any of the following problems? 1. Little interest or pleasure in doing things: more than half the days 2. Feeling down, depressed, or hopeless: not at all 3. Trouble falling or staying asleep, or sleeping too much: more than half the days 4. Feeling tired or having little energy: not at all 5. Poor appetite or overeating: nearly every day 6. Feeling bad about yourself - or that you are a failure or have let yourself or your family down: several days 7. Trouble concentrating on things, such as reading the newspaper or watching television: several days 8. Moving or speaking so slowly that other people could have noticed. Or the opposite - being so fidgety or restless that you have been moving around a lot more than usual: several days 9. Thoughts that you would be better off or of hurting yourself in some way: not at all Total score: 10 Depression Screening Interpretation: Positive Depression Screening Follow-up: Existing condition, In treatment, Community Mental Health Worker F/U and Follow-up Visit Requested Depression Screening Done: Yes 03125 - PHQ-9 Billing: Yes Source: Developed by Drs. Kenn Sam, Erica Tapia, Sung Nunez and colleagues, with an educational ahsan from [employer]. Thrive Questionnaire Date Thrive assessed: 03/23/24 I am a: Patient What is your living situation today?: I have a steady place to live Within the past 12 months, did the food you bought not last and you didn't have the money to get more?: Often true Within the past 12 months, did you worry whether your food would run out before you got money to buy more?: Sometimes True Do you have trouble paying for medicines?: Yes Do you have trouble getting transportation to medical appointments?: No Do you have trouble paying your heating and electricity bill?: Yes Do you have trouble taking care of your child, family member or friend?: No Do you have trouble with day-to-day activities such as bathing, preparing meals, shopping, managing finances, etc.?: Yes Are you currently unemployed and looking for a job?: Yes Are you interested in more education?: No Please select the resources that you would like help with: Food and Paying for medicine Currently or been in a relationship where the following occur: I choose not to answer THRIVE Score: 3 AUDIT C Alcohol Use Questionnaire (AUDIT-C) 1. How often do you have a drink containing alcohol?: Never Total Score: 0 SIRISHA-7 AMB Questionnaire SIRISHA-7 Date SIRISHA - 7 assessed: 03/23/24 Feeling nervous, anxious, or on edge: 2 = More than half the days Not being able to stop or control worryin = More than half the days Worrying too much about different things: 2 = More than half the days Trouble relaxin = More than half the days Being so restless that it is hard to sit still: 2 = More than half the days Becoming easily annoyed or irritable: 2 = More than half the days Feeling afraid as if something awful might happen: 2 = More than half the days Total SIRISHA-7 score (0-4 normal; 5-9 mild; 10-14 moderate; 15-21 severe): 14 Source: Developed by Drs. Kenn Sam, Erica Tapia, Sung Nunez and colleagues, with an educational ahsan from [employer]. SIRISHA-7 Assessment Billing SIRISHA-7 Assessment Tool: SIRISHA-7 Assessment 80001 Review of Systems Const All systems reviewed & are unremarkable except as noted in HPI and below Card Denies chest pain at rest, Denies chest pain with activity, Denies edema, Denies irregular heart rhythm, Denies claudication, Denies dyspnea, Denies dyspnea on exertion, Denies orthopnea, Denies paroxysmal nocturnal dyspnea and Denies slow heart rate Resp Denies cough, Denies dyspnea and Denies dyspnea on exertion GI Denies abdominal pain, Denies change in bowel habits, Denies excessive flatus, Denies nausea and Denies vomiting Denies urinary hesitancy, Denies urinary incontinence and Denies urinary urgency Neuro Denies lack of coordination Physical exam (Primary Care) Vital Signs: Last Vital Signs BP 122/70 06/02/24 17:27 BMI result Body Mass Index 33.3 BMI Assessment/Plan discussion: High BMI High, discussed plan: lifestyle, weight reduction, dietary and physical activity Tobacco/Smoking Status: Tobacco use Status Tobacco use date assessed 03/23/24 06/02/24 17:32 Patient Tobacco Use Status Former Tobacco user 06/02/24 17:32 Tobacco use type Cigarette 06/02/24 17:32 e-Cigarette/Vaping Use Never Used 06/02/24 17:32 PHQ-9: PHQ-9 Score PHQ-9: Total score 10 06/02/24 18:23 Depression Screening Interpretation: Positive Depression Screening Follow-up: Existing condition, In treatment, Community Mental Health Worker F/U and Follow-up Visit Requested Thrive Assessment: Date of Thrive Assessment Date Thrive assessed 03/23/24 06/02/24 17:32 Currently or been in a relationship where the following occur: I choose not to answer [facility] Head: Yes normal to inspection, Yes normocephalic and Yes atraumatic Ears: external ears normal Eyes General: appearance normal, both eyes and all related structures Eyelids: Yes eyelids normal Conjunctivae: conjunctivae normal Neck Neck: Yes normal visual inspection and Yes supple Resp Effort & Inspection: normal respiratory effort Auscultation: clear to auscultation bilaterally Cardio Jugular venous distension: no JVD Rate: regular rate Rhythm: regular rhythm Heart sounds: S1 normal heart sound present and S2 normal heart sound present GI Inspection: Yes normal to inspection Palpation (GI): Soft to palpation and nontender Auscultation: normal bowel sounds Skin General skin exam: no rashes or lesions noted Neuro General: no focal motor deficits Extrem General: Yes full ROM Psych Appearance: grossly normal Coding Level of Care Code Est Pt Level 3 (93634) Est Pt Prev Care 40-64y(11430) Diagnoses Encounter for physical examination Z00.00 Mild recurrent major depression F33.0 Pure hypercholesterolemia E78.00 Lumbar pain M54.50 Additional Codes SIRISHA-7 Assessment Billing - SIRISHA-7 Assessment Tool: SIRISHA-7 Assessment 62015 ([id number]) PHQ-9 - 92024 - PHQ-9 Billing: Yes ([id number]) Time Spent (min) 35 Assessment & Plan Assessment & Plan (1) Encounter for physical examination: Code(s): Z00.00 - Encounter for general adult medical examination without abnormal findings Category: Medical (2) Mild recurrent major depression: Code(s): F33.0 - Major depressive disorder, recurrent, mild Category: Medical (3) Pure hypercholesterolemia: Code(s): E78.00 - Pure hypercholesterolemia, unspecified Category: Medical (4) Lumbar pain: Code(s): M54.50 - Low back pain, unspecified Category: Medical Plan I will check the correct Clonidine dosage to accurately manage hypertension and ensure medication errors are resolved. Hyperlipidemia will be addressed by adjusting dietary intake and medications as necessary. Depression management will continue with Sertraline, with periodic assessment of its effectiveness. For fall-related lower back pain, I have ordered a radiograph for accurate diagnosis and further management. Referral to dermatology is planned for the verruca issue. The colonoscopy findings from 2022 indicate no immediate need for further procedures until the next screening in a decade. I will emphasize reducing coronary artery disease risk factors through lifestyle modifications. Patient was informed and verbally consented to the use of an ambient scribe for clinic note documentation during this visit. I discussed with the patient the importance of medication compliance, especially concerning antihypertensive and lipid-lowering drugs. For hyperlipidemia, we reviewed dietary modifications and medication options. I explained the past colonoscopy findings and no immediate need for follow-up until the next screening in a decade, but encouraged ongoing vigilance. We talked about the necessity of a back radiograph following his reported falls to ensure adequate diagnosis and management. I explored dermatological consultation needs for the verruca and recommended lifestyle improvements to prevent coronary artery disease. We discussed follow-up plans and agreed on monitoring therapy effectiveness, with further adjustments as necessary, particularly concerning his chronic conditions and risk factors. Orders: Orders XR lumbar spine 2-3V Today M54.50 - Low back pain, unspecified Medications: New atorvastatin 20 mg PO BEDTIME 90 tabs 1RF 90 days E78.00 - Pure hypercholesterolemia, unspecified hydrochlorothiazide 25 mg PO DAILY 90 tabs 1RF 90 days I10 - Essential (primary) hypertension nabumetone 750 mg PO BID 60 tabs 1RF 30 days Refilled clonidine HCl 0.1 mg PO BID 180 tabs 1RF 90 days Discontinued meloxicam Discontinued Reason: Order 15 mg PO DAILY 30 days 30 tabs 0RF Patient Instructions: - Ensure accurate Clonidine dosage given for hypertension; consult pharmacy for confirmation. - Maintain high-fiber diet to manage hyperlipidemia. - Continue taking Sertraline for depression; report any changes in mood or symptoms. - Complete prescribed radiograph for back assessment. - Follow up with a business administrator for verruca evaluation. - Continue lifestyle changes to reduce heart disease risk; monitor cholesterol levels regularly. - Schedule necessary blood pressure checks and report any discrepancies.
== END 2024-06-02 18:31 | disposition home or self-care (01) ==
LOC: HO.HMCH 16:59
PROVIDERS: PCP Internal Medicine; Visit Provider Internal Medicine
DX: Z00.00 Encounter for general adult medical examination without abnormal findings (principal); F33.0 Major depressive disorder, recurrent, mild; E78.00 Pure hypercholesterolemia, unspecified; M54.50 Low back pain, unspecified

== ENCOUNTER → 2024-06-02 16:58 | Outpatient (BNVA) | payer OTHER, SELFPAY | PROVIDERS: PCP Internal Medicine; Visit Provider Internal Medicine | DX: Z00.00 Encounter for general adult medical examination without abnormal findings (principal); F33.0 Major depressive disorder, recurrent, mild; E78.00 Pure hypercholesterolemia, unspecified; M54.50 Low back pain, unspecified | CPT/HCPCS: 96127; 99212; 99396 ==

== ENCOUNTER 2024-06-10 08:16 | Outpatient (REF) | payer OTHER, SELFPAY ==
--- NOTE | ~2024-06-10 | XR_ITS ---
CLINICAL HISTORY: M54.50 - Low back pain, unspecified 3 views lumbar spine Comparison: 03/25/2024 Findings: Normal vertebral body alignment. No acute fractures or dislocation. There is degenerative disc change at L2-L3. IMPRESSION: No acute findings. This document has been electronically signed by: Josh Mendenhall MD on 06/11/2024 08:45:42
--- OUTSIDE RECORDS SUMMARY | 2024-06-10 08:24 | XMS_ITS | Encounter Summary ---
Author Organization [employer] [facility] Address [address]t [place] [address] Care Team Providers Care Conduit Installer Name Role Phone Unavailable Primary Care Provider Unavailabl e Encounter Details Date Type Department Care Team (Late st Contact Info) Description 05/10/2022 Abstract [facility] ADULT DENTAL [address] [place], [place] [phone] Geraldo Gotti, ANA [address] [place], [place] [phone] Social History Tobacco Use Types Packs/Day Years [...]
--- OUTSIDE RECORDS SUMMARY | 2024-06-10 08:24 | XMS_ITS | Encounter Summary ---
Author Organization [employer] [facility] Address [address] [place] [address] Care Team Providers Care Pool Hall Inspector Name Role Phone Unavailable Primary Care Provider [...]
--- OUTSIDE RECORDS SUMMARY | 2024-06-10 08:24 | XMS_ITS | Encounter Summary ---
Author Organization [employer] [facility] Address [address] [place] [address] Care Team Providers Care Salvage Inspector Name Role Phone Unavailable Primary Care [...]
--- OUTSIDE RECORDS SUMMARY | 2024-06-10 08:24 | XMS_ITS | Encounter Summary ---
Author Organization [employer] [facility] Address [address] [place] [address] Care Team Providers Care Nursing Education Consultant Name Role Phone Unavailable Primary Care Provider Unavailabl e Reason for Visit * Reason Onset Date Comments crown appt 09/24/2022 Encounter Details Date Type Department Care Team (Late st Contact Info) Description 09/24/2022 Telephone [facility] ADULT DENTAL [address] [place] [address] Geraldo Gotti, DMD [address] [place] [address] crown appt Social History Tobacco Use Types [...]
--- OUTSIDE RECORDS SUMMARY | 2024-06-10 08:24 | XMS_ITS | Encounter Summary ---
Author Organization [employer] [facility] Address [address] [place] [address] Care Team Providers Care Etl Consultant Name Role Phone Unavailable Primary Care [...]
--- OUTSIDE RECORDS SUMMARY | 2024-06-10 08:24 | XMS_ITS | Clinical Summary ---
Author Organization [employer] Address [address] [place] [address] [address] [place] [address] Care Team Providers Care Supervisor Steffen House Name Role Phone Unavailable Primary Care Provider [...] 01/01/2024 Dental abscess 01/01/2024 Dental calculus 10/09/2022 Social History Tobacco Use Types Packs/Day Years [...] - 19+ 3-dose series) 1994 COVID-19 Vaccine ( - 2023-2 5 season) 2023 Influenza Vaccine (#1) 2023 [...] Procedure Name Priority Date/Time Associated Diagnosis Comments PROPHYLAXIS - ADULT Routine 01/16/2024 1 :00 PM EST Dental calculus Dental plaque Tartar deposits on teeth INTRAORAL - COMPLETE SERIES OF RADIOGRAPHIC IMAGES Routine 01/16/2024 1:00 PM EST PERIODIC ORAL EVALUATION - ESTABLISHED PATIENT Routine 01/16/2024 1:00 PM EST from Last 3 Months or Most Recently Relevant to Health Maintenance Insurance [facility] MEDICAID STAND ADULT
[2024-06-10 09:41] LABS: Prostate Specific Antigen 0.39 ng/mL (<0.05-4.0)
== END 2024-06-10 08:17 | disposition home or self-care (01) ==
LOC: HO.XRAY 08:16
PROVIDERS: Absent Provider Nurse Practitioner Family; PCP Internal Medicine; Visit Provider Internal Medicine
DX: R35.0 Frequency of micturition (principal); R39.15 Urgency of urination; N39.41 Urge incontinence; M54.50 Low back pain, unspecified
CPT/HCPCS: 36415; 72100; 84153

== ENCOUNTER → 2024-06-10 08:27 | Outpatient (BNV) | payer OTHER, SELFPAY | PROVIDERS: Absent Provider Nurse Practitioner Family; PCP Internal Medicine; Visit Provider Specialist | DX: M54.50 Low back pain, unspecified (principal) | CPT/HCPCS: 72100 ==

== ENCOUNTER 2024-08-09 10:52 | Outpatient (REF) | payer OTHER, SELFPAY ==
--- NOTE | ~2024-08-09 | US_ITS ---
CLINICAL HISTORY: N39.41 - Urge incontinence US Renal Comparison: None Findings: Right kidney normal size and echotexture, 12.4 cm length. Subcentimeter benign cyst noted. Left kidney normal size and echotexture, 12.3 cm length. There are 2 lower pole cysts and a nonobstructing 5 mm lower pole calculus. No collecting system dilatation of either kidney. Normal color Doppler. Urinary bladder is unremarkable. Prevoid volume 343 mL. Postvoid volume 6 mL. Bilateral ureteral jets are visualized. Prostate volume: 21 mL IMPRESSION: The study demonstrates no acute process. Benign renal cysts are noted. Nonobstructing left renal calculus also noted. This document has been electronically signed by: Cuong Plascencia MD on 08/10/2024 07:35:46
--- OUTSIDE RECORDS SUMMARY | 2024-08-09 12:01 | XMS_ITS | Encounter Summary ---
Author Organization [employer] [facility] Address [address] [place] [address] Care Team Providers Care Cigar Making Machine Supervisor Name Role Phone Unavailable Primary Care Provider [...]
== END 2024-08-09 10:53 | disposition home or self-care (01) ==
LOC: HO.US 10:52
PROVIDERS: PCP Internal Medicine; Visit Provider Nurse Practitioner Family
DX: N39.41 Urge incontinence (principal); R35.0 Frequency of micturition; F52.4 Premature ejaculation
CPT/HCPCS: 76770

== ENCOUNTER → 2024-08-09 10:55 | Outpatient (BNV) | payer OTHER, SELFPAY | PROVIDERS: PCP Internal Medicine; Visit Provider Radiology Vascular & Interventional Radiology | DX: N28.1 Cyst of kidney, acquired (principal); N20.0 Calculus of kidney | CPT/HCPCS: 76770 ==

== ENCOUNTER 2024-08-18 11:22 | Outpatient (AMB) | payer OTHER, SELFPAY ==
--- NOTE | 2024-08-18 11:28 | A.OFFVIS_ITS ---
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 Carter. He has a past medical history of hypertension, depression, obesity, and asthma. He presents to the office today for follow-up. Of note, patient was seen approximately 3 months ago as a new patient for ongoing lower urinary tract symptoms he had been experiencing at which time a retroperitoneal ultrasound and PSA were ordered for further assessment evaluation. These results were reviewed and communicated with the patient today. 09/01 bilateral kidneys are normal in size and echotexture. Subcentimeter benign right renal cysts noted. Left kidney with 2 lower pole cysts and a nonobstructing 5 mm lower pole calculus. No collecting system dilatation of either kidney. Pre void bladder volume 350 mL. Postvoid bladder volume is 5 mL. Prostate volume of 21 mL. PSAs are as follows: PSA: 04/29 0.3, 07/02 0.4 He reports that although he experiences urinary urgency and frequency he would like to continue with lifestyle modifications and feels symptoms are manageable. We did discussed bladder triggers and irritants. We discussed the importance of adequate hydration relation to lower urinary tract symptoms as well as nephrolithiasis noted on most recent imaging. In office urinalysis results reviewed with the patient today. PVR 41 mL. He does also report a longstanding history of premature ejaculation and has been utilizing OTC duration as recommended during last office visit. He denies hematuria, dysuria, foul smell ing urine, changes to urinary stream, flank pain, fever, and or chills. He otherwise offers no other issues or concerns at this time. [facility] Medical History Mild recurrent major depression Moderate recurrent major depression HTN (hypertension) Obesity (BMI 30.0-34.9) Chest pain Encounter for physical examination Hypovitaminosis D Mild asthma Overweight (BMI 25.0-29.9) Depression with anxiety Surgical History No pertinent past surgical history Family History Father Prostate cancer Mother Asthma Social History Housing: Apartment Alcohol intake: former Patient Tobacco Use Status: Former Tobacco user Tobacco use type: Cigarette e-Cigarette/Vaping Use: Never Used Second Hand Smoke Exposure: No service: No Current occupational status: unemployed Cognitive needs: No Hearing needs: No Vision needs: No Review of Systems Const All systems reviewed & are unremarkable except as noted in HPI and below Physical Exam Const General: cooperative, healthy appearing, comfortable, no acute distress, well developed, alert and awake Nutritional Appearance: overweight Orientation/consciousness: patient oriented x3 Limitations: no limitations HEENT Head: Yes normal to inspection, Yes normocephalic and Yes atraumatic Ears: hearing grossly normal bilaterally Eyes General: appearance normal, both eyes and all related structures Neck Neck: Yes normal visual inspection and Yes trachea midline Chest Chest palpation & inspection: normal inspection of the chest Resp Effort & Inspection: normal respiratory effort and able to speak in complete sentences Cardio Rate: regular rate GI Inspection: Yes normal to inspection General: Yes no CVA tenderness Back/Spine/Pelvis Back: no CVA tenderness Skin General skin exam: no rashes or lesions noted Neuro General: patient oriented x3 Extrem General: Yes normal to inspection Psych Appearance: grossly normal and well kempt Mental Status: mental status grossly normal Speech and movement: Normal speech and movement present and Clear speech present Affect: normal affect Attitude: cooperative Thought process: Normal thought process present Thought content: Normal thought content present Insight: Fair insight present (Psych) Judgement: Fair judgement present (Psych) Results AMB Urinalysis, Automated UA Leukoctes 0 Jackson/uL Last Edit by Aruna Graham on 08/18/24 11:37 UA Nitrite Negative Last Edit by Aruna Graham on 08/18/24 11:37 UA Urobilinogen 17 mg/dL Last Edit by Crystal Graham on 08/18/24 11:37 UA Protein 1 mg/dL Last Edit by Crystal Graham on 08/18/24 11:37 UA pH 6.0 Last Edit by Crystal Graham on 08/18/24 11:37 UA Blood 0 Eligio/uL Last Edit by Crystal Graham on 08/18/24 11:37 UA Specific [place] 1.025 Last Edit by Crystal Graham on 08/18/24 11:37 UA Ketone Negative Last Edit by Crystal Graham on 08/18/24 11:37 UA Bilirubin 0 mg/dL Last Edit by Aruna Graham on 08/18/24 11:37 UA Glucose 0 mg/dL Last Edit by Aruna Graham on 08/18/24 11:37 Results Reviewed Results Reviewed: Laboratory Last Values Urine pH (Auto) 6.0 08/18/24 08:19 Specific [place] (Auto) 1.025 08/18/24 08:19 Urine Protein (Auto) 1 mg/dL 08/18/24 08:19 Glucose (UA)(Auto) 0 mg/dL 08/18/24 08:19 Urine Ketones (Auto) Negative 08/18/24 08:19 Urine Blood (Auto) 0 Eligio/uL 08/18/24 08:19 Urine Nitrite (Auto) Negative 08/18/24 08:19 Urine Bilirubin (Auto) 0 mg/dL 08/18/24 08:19 Urine Urobilinogen (Auto) 17 mg/dL 08/18/24 08:19 Leukocyte Esterase (Auto) 0 Jackson/uL 08/18/24 08:19 Date of Service: 08/09/24 Procedure(s): US retroperitoneal comp Findings: Right kidney normal size and echotexture, 12.4 cm length. Subcentimeter benign cyst noted. Left kidney normal size and echotexture, 12.3 cm length. There are 2 lower pole cysts and a nonobstructing 5 mm lower pole calculus. No collecting system dilatation of either kidney. Normal color Doppler. Urinary bladder is unremarkable. Prevoid volume 343 mL. Postvoid volume 6 mL. Bilateral ureteral jets are visualized. Prostate volume: 21 mL IMPRESSION: The study demonstrates no acute process. Benign renal cysts are noted. Nonobstructing left renal calculus also noted. Assessment & Plan Assessment & Plan (1) Urinary frequency: Code(s): R35.0 - Frequency of micturition Category: Medical (2) Urinary urgency: Code(s): R39.15 - Urgency of urination Category: Medical (3) Urinary incontinence, urge: Code(s): N39.41 - Urge incontinence Category: Medical (4) Nephrolithiasis: Code(s): N20.0 - Calculus of kidney Category: Medical Plan In office urinalysis results reviewed with the patient today; as noted above. PVR 41 mL. Recent PSA results reviewed with the patient today; as noted above. Recent retroperitoneal ultrasound results reviewed with the patient today; as noted above. Will continue surveillance monitoring of lower urinary tract symptoms. We did discussed lifestyle modifications to assist with lower urinary tract symptoms as well as premature ejaculation. All questions were answered. We discussed adding 1 oz of lemon juice to water daily. We discussed importance of adequate hydration relation to nephrolithiasis as well as overall health and well-being. Will obtain KUB in 6 months Follow-up in 6 months with KUB; or sooner with any issues, concerns, and or questions. Orders: Orders 2 AMB Post Void Residual by ultrasound Today R35.0 - Frequency of micturition XR KUB 6 Months N20.0 - Calculus of kidney AMB Urinalysis Automated Today Z13.9 - Encounter for screening, unspecified Patient Instructions: The patient had an opportunity to ask questions regarding the treatment plan. All questions were answered. Physical exam, labs, and imaging were discussed and reviewed in detail. As well as risks, benefits, and discussion of treatment choices. No major barriers to understanding were identified. The patient expressed understanding and agreement with the above treatment plan. The patient was made aware they should contact our office by phone for worsening of their current condition, the appearance of new symptoms, or with any questions or concerns. Compliance is encouraged with any medications and follow up testing that is ordered. It is a privilege to be allowed the opportunity to participate in? your urological care.? Again, if you have any questions or concerns If you have any questions or concerns please do not hesitate to contact me. The office is [phone]. This note is constructed using voice recognition software. While every effort has been made to ensure accuracy manager dish errors may have been included. Yours sincerely, Cherelle Jones INHALATION THERAPIST-BC Coding Level of Care Code Est Pt Level 3 (24704) Diagnoses Urinary frequency R35.0 Urinary urgency R39.15 Urinary incontinence, urge N39.41 Nephrolithiasis N20.0
--- OUTSIDE RECORDS SUMMARY | 2024-08-18 13:03 | XMS_ITS | Encounter Summary ---
Author Organization [employer] [facility] Address [address] [place] [address] Care Team Providers Care Au Pair Name Role Phone Unavailable Primary Care Provider Unavailabl e Encounter Details Date Type Department Care Team (Latest Contact Info) Description 06/15/2020 Abstract [facility] CONVERSIONS Dental, Provider, DDS Social History Tobacco Use Types Packs/Day Years Used Date Smoking Tobacco: Never Assessed Sex and Gender Information Value Date Recorded Sex Assigned at Male 01/07/2022 10:20 AM EDT Legal Sex Male 10:20 AM EDT Gender Identity Male 01/07/2022 10:20 AM EDT Sexual Orientation Straight 01/07/2022 10 :20 AM EDT documented as of this encounter Plan of Treatment Upcoming Encounters Date Type Department Care Team (Late st Contact Info) Description 09/01/2024 11:00 AM EDT Office Visit [facility] ADULT DENTAL [address] [place] [address] Geraldo Gotti, DMD [address] [place] [address] 09/20/2024 1:30 PM EDT Office Visit [facility] [address] [place] [address] David Fernandes, DDS [address] [place] [address] 11/15/2024 11:00 AM EDT Office Visit [facility]ULT [facility] [address] [place] [address] Penny Murillo 11/22/2024 2:00 PM EDT Office Visit [facility]ULT [facility] [address] [place] [address] Penny Murillo documented as of this encounter Visit Diagnoses Not on filedocumented in this encounter
== END 2024-08-18 12:03 | disposition home or self-care (01) ==
LOC: HO.HUSH 11:23
PROVIDERS: PCP Internal Medicine; Visit Provider Nurse Practitioner Family
DX: R35.0 Frequency of micturition (principal); R39.15 Urgency of urination; N39.41 Urge incontinence; N20.0 Calculus of kidney; Z13.9 Encounter for screening, unspecified
CPT/HCPCS: 99213

== ENCOUNTER → 2024-08-18 11:22 | Outpatient (BNVA) | payer OTHER, SELFPAY | PROVIDERS: PCP Internal Medicine; Visit Provider Nurse Practitioner Family | DX: N20.0 Calculus of kidney (principal); R35.0 Frequency of micturition; R39.15 Urgency of urination | CPT/HCPCS: 81003; 99212 ==

== ENCOUNTER 2024-12-16 14:18 | Outpatient (AMB) | payer OTHER, SELFPAY ==
[2024-12-16 14:31] VITALS: BP 92/52; PULSE 65; RESP 18; TEMP 36.4; O2SAT 93; BMI 32.5
--- NOTE | 2024-12-16 14:31 | A.OFFPC_ITS ---
Vital Signs 12/16/24 14:31 Height 5 ft 8 in Weight 214 lb BMI 32.5 BP 92/52 L Blood Pressure Location Lt brachial Position Sitting Respiration 18 Pulse 65 Pulse Source Pulse Oximeter Temp 97.5 F Temp Source Temporal Artery Scan Pulse Oximetry (%) 93 Oxygen Delivery Method Room Air Intake Visit Reasons: rash all over body Cvor Nurse Required: Yes Cvor Nurse Language: Spiritual Care Coordinator Name: Fauzia/Artemio Accompanied by: Self / Same As Patient Allergies No Known Allergies Allergy (Verified 12/16/24 14:44) Medication List - Last Reconciled 12/16/24 by KUSUM Rodriguez atorvastatin 20 mg PO BEDTIME 90 days clonidine HCl 0.1 mg PO BID 90 days hydrochlorothiazide 25 mg PO DAILY 90 days nabumetone 750 mg PO BID 30 days sertraline 100 mg PO DAILY 90 days Ventolin HFA 90 mcg/actuation (albuterol sulfate) 2 puffs inhalation Q6H PRN 30 days NS Tobacco use date assessed: 12/16/24 Dental Screening Dental Screen Date: 12/16/24 Did you have a dental visit in the last 12 months?: Yes Did you have a dental problem in the last 6 months where you did not have access to dental care?: No Was dental information given to patient?: Patient has dentist HPI rash all over body HPI Details The patient is a 49-year-old male with significant past medical history of essential hypertension, HLD, and depression. Patient of Dr. Carter, last seen in office on 08/27/2024 The patient is presenting with a rash on his entire upper arm, chest and back. The rash began last night and is characterized by significant itching. The patient denies any new medications, skin products, or dietary changes that could have triggered the rash. The patient reports that he was cleaning an air conditioner when some liquid spilled on him, which he suspects may have caused the reaction. He has not experienced any shortness of breath or chest pain, and he has not taken any medication for the rash except for a cream he had at home. [facility] Medical History Mild recurrent major depression Moderate recurrent major depression HTN (hypertension) Obesity (BMI 30.0-34.9) Chest pain Encounter for physical examination Hypovitaminosis D Mild asthma Overweight (BMI 25.0-29.9) Depression with anxiety Surgical History No pertinent past surgical history Family History Father Prostate cancer Mother Asthma Social History Housing: Apartment Alcohol intake: former Patient Tobacco Use Status: Former Tobacco user Tobacco use type: Cigarette e-Cigarette/Vaping Use: Never Used Second Hand Smoke Exposure: No service: No Current occupational status: unemployed Cognitive needs: No Hearing needs: No Vision needs: No Questionnaire Thrive Questionnaire Date Thrive assessed: 06/02/24 I am a: Patient What is your living situation today?: I have a steady place to live Within the past 12 months, did the food you bought not last and you didn't have the money to get more?: Often true Within the past 12 months, did you worry whether your food would run out before you got money to buy more?: Sometimes True Do you have trouble paying for medicines?: Yes Do you have trouble getting transportation to medical appointments?: No Do you have trouble paying your heating and electricity bill?: Yes Do you have trouble taking care of your child, family member or friend?: No Do you have trouble with day-to-day activities such as bathing, preparing meals, shopping, managing finances, etc.?: Yes Are you currently unemployed and looking for a job?: Yes Are you interested in more education?: No Currently or been in a relationship where the following occur: I choose not to answer THRIVE Score: 3 SIRISHA-7 AMB Questionnaire SIRISHA-7 Date SIRISHA - 7 assessed: 03/23/24 Source: Developed by Drs. Kenn Sam, Erica Tapia, Sung Nunez and colleagues, with an educational ahsan from [employer]. Review of Systems Const Denies body aches, Denies chills, Denies fatigue, Denies fever(s) and Denies headache(s) Eyes Denies loss of vision ENT Denies dizziness, Denies headache(s), Denies lip swelling, Denies nasal congestion, Denies nasal discharge, Reports tinnitus and Denies sore throat Card Denies chest pain, Denies syncope, Denies rapid heart rate, Denies pedal edema, Denies edema and Denies dyspnea Resp Denies cough, Denies dyspnea, Denies stridor and Denies wheezing GI Denies abdominal pain Musc Denies arthralgias and Denies joint swelling Skin/Breast Reports pruritus and Reports rash (widespread) Neuro Denies dizziness, Denies syncope, Denies headache(s), Denies focal weakness and Denies loss of vision Endo Denies fatigue Aller/Immun Denies lip swelling and Denies wheezing Physical exam (Primary Care) Vital Signs: Last Vital Signs Temp 97.5 F 12/16/24 14:31 Pulse 65 12/16/24 14:31 Resp 18 12/16/24 14:31 BP 92/52 L 12/16/24 14:31 Pulse Ox 93 12/16/24 14:31 Oxygen Delivery Method Room Air 12/16/24 14:31 BMI result Body Mass Index 32.5 Tobacco/Smoking Status: Tobacco use Status Tobacco use date assessed 12/16/24 12/16/24 14:39 Patient Tobacco Use Status Former Tobacco user 12/16/24 14:39 Tobacco use type Cigarette 12/16/24 14:39 e-Cigarette/Vaping Use Never Used 12/16/24 14:39 Thrive Assessment: Date of Thrive Assessment Date Thrive assessed 06/02/24 12/16/24 14:39 Currently or been in a relationship where the following occur: I choose not to answer Const General: cooperative Orientation/consciousness: oriented to person, oriented to place and patient opal ented x3 Limitations: no limitations [facility] Head: Yes normal to inspection Ears: hearing grossly normal bilaterally General nose exam: Normal external nose present Throat: Yes posterior oropharynx normal Eyes Pupils: Equal, round and reactive pupils present Neck Neck: Yes normal visual inspection Chest Chest palpation & inspection: rash (widespread ) Resp Effort & Inspection: normal respiratory effort Auscultation: clear to auscultation bilaterally Cardio Rate: regular rate Rhythm: regular rhythm Heart sounds: S1 normal heart sound present, S2 normal heart sound present and no murmurs GI Palpation (GI): Soft to palpation and nontender Auscultation: normal bowel sounds Skin Rashes: rashes noted (left upper arm, chest and back, erythema hives appearing rashes) Neuro General: oriented to person, oriented to place, patient oriented x3 and no focal motor deficits Cranial nerves: Yes Equal, round and reactive pupils present Motor exam (neuro): 5/5 motor strength present throughout Coding Level of Care Code Est Pt Level 3 (58003) Diagnoses Hives L50.9 Skin pruritus L29.9 Time Spent (min) 32 Assessment & Plan Assessment & Plan (1) Hives: Code(s): L50.9 - Urticaria, unspecified Category: Medical (2) Skin pruritus: Code(s): L29.9 - Pruritus, unspecified Category: Medical Plan The patient was advised to avoid contact with potential allergens and to wear protective clothing when handling chemicals. He was prescribed prednisone, starting with 40 mg daily for two days, followed by a tapering dose over the next 8 days. Additionally, hydroxyzine was prescribed for itch relief, with instructions to start with a low dose at night to assess for drowsiness. The patient was also advised to avoid alcohol while on medication and to apply a prescribed cream to the affected area, avoiding the face. Medications: New prednisone see taper instructions take 4 tabs x2 days, then 3 tabs x 2 days, then 2 tabs x2 days, then 1 tab x 2 days =20 tabs for 8 eight days 10 mg PO DIRECTED 20 tabs 0RF hydroxyzine HCl 25 mg PO TID PRN 90 tabs 0RF itching betamethasone dipropionate 0.05% 1 appl topical BID PRN 45 grams 1RF skin irritation
== END 2024-12-16 15:06 | disposition home or self-care (01) ==
LOC: HO.HMCH 14:19
PROVIDERS: PCP Internal Medicine
DX: L50.9 Urticaria, unspecified (principal); L29.9 Pruritus, unspecified

== ENCOUNTER → 2024-12-16 14:18 | Outpatient (BNVA) | payer OTHER, SELFPAY | PROVIDERS: PCP Internal Medicine | DX: I10 Essential (primary) hypertension (principal); E78.5 Hyperlipidemia, unspecified; F32.A Depression, unspecified; L50.9 Urticaria, unspecified; L29.9 Pruritus, unspecified | CPT/HCPCS: 99212 ==

== ENCOUNTER 2025-02-28 12:42 | Outpatient (REF) | payer OTHER, SELFPAY ==
--- NOTE | ~2025-02-28 | XR_ITS ---
EXAMINATION: XR ABDOMEN 1 VIEW (KUB) HISTORY: N20.0 - Calculus of kidney COMPARISON: Correlation is made with a renal ultrasound dated 08/09/2024. FINDINGS: Two supine views of the abdomen are submitted. The bowel gas pattern is unremarkable, without evidence of mechanical obstruction. There is a moderate amount of stool throughout the colon. There are phleboliths in the pelvis. No abnormal calcifications are identified in the upper abdomen. There are no abnormal soft tissue masses. The bones are intact. XR/XR KUB IMPRESSION: No suspicious calcifications are identified. Electronically signed by: Kenn Sweeney MD 02/28/2025 02:29 PM [facility]
--- OUTSIDE RECORDS SUMMARY | 2025-02-28 15:51 | XMS_ITS | Encounter Summary ---
Author Organization [employer] [facility] Address [address] [place] [address] Care Team Providers Care Toy Maker Name Role Phone Unavailable Primary Care Provider Unavailabl e Encounter Details Date Type Department Care Team (Latest Contact Info) Description 05/24/2019 Abstract [facility] CONVERSIONS Dental, Provider, DDS Social History [...] Care Team (Late st Contact Info) Description 03/14/2025 1:00 PM EST Office Visit [facility] ADULT DENTAL [address] [place] [address] 04/11/2025 9:00 AM EST Office Visit [facility] ADULT [facility] [address] [place] [address] Geraldo Gotti DMD [address] [place] [address] 07/19/2025 9:30 AM EDT Office Visit [facility] ADULT [facility] [address] [place] [address] Penny Murillo documented as of this encounter Visit Diagnoses Not on filedocumented in this encounter
--- OUTSIDE RECORDS SUMMARY | 2025-02-28 15:51 | XMS_ITS | Clinical Summary ---
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 Name Role Phone Unavailable Primary Care Provider Unavailabl e Allergies No known active allergies Medications Ventolin HFA 108 (90 Base) MCG/ACT inhaler INHALE 2 PUFFS CADA SEIS HORAS CUANDO SEA NECESARIO PARA LA FALTA DE RESPIRACI N OR WHEEZING 06/07/19 23 Active cloNIDine (Catapres) 0.1 MG tablet TOME YAMILET TABLETA DOS VECES AL D A CUANDO SEA NECESARIO 09/16/19 23 Active hydrocortisone 2.5 % cream APLIQUE AL HENRI AFECTADA TOPICALLY PAMELLA VECES AL D A CUANDO SEA NECESARIO FOR ITCHING 09/23/19 23 Active sertraline (Zoloft) 100 MG tablet TOME YAMILET TABLETA POR V A ORAL TODOS LOS D 07/21/19 23 Active cyclobenzaprin e (Flexeril) 10 MG tablet TOME YAMILET TABLETA PAMELLA VECES AL D A PARA EL ESPASMO MUSCULAR CUANDO SEA NECESARIO 04/11/19 23 Active cholecalcifero l (Vitamin D-3) 50 MCG (1999 UT) capsule TOME 1 C PSULA POR V A ORAL TODOS LOS D 10/18/19 23 Active hydroCHLOROthi azide (HYDRODiuril) 25 MG tablet Take 25 mg by mouth Once per day. 10/27/19 24 Active ibuprofen 600 MG tablet Take 1 tablet (600 mg) by mouth every 6 (six) hours if needed for mild pain for up to 20 doses. 20 tablet 01/01/20 24 Active ibuprofen 600 MG tablet Take 1 tablet (600 mg) by mouth 3 times daily. 30 tablet 09/21/19 25 Active acetaminophen (Tylenol 8 Hour) 650 MG ER tablet Take 1 tablet (650 mg) by mouth every 8 (eight) hours if needed for mild pain. Do not crush, chew, or split. 30 tablet 02/23/20 25 Active amoxicillin (Amoxil) 500 MG capsule Take 1 capsule (500 mg) by mouth every 8 (eight) hours for 7 days. 21 capsule 02/23/20 25 025 Active acetaminophen (Tylenol 8 Hour) 650 MG ER tablet Take 1 tablet (650 mg) by mouth every 8 (eight) hours if needed for mild pain. Do not crush, chew, or split. 30 tablet 09/21/19 25 025 Discontinued Active Problems Problem Noted Date Diagnosed Date Fractured dental yarsani without loss of mat erial 02/22/2025 Dental caries 02/22/2025 Retained dental root 01/01/2024 Dental abscess 01/01/2024 Dental calculus 10/09/2022 Encounters Date Type Department Care Team Description 02/22/2025 11:30 AM EST Office Visit [facility] [address] [place] [address] David Fernandes DDS Fractured dental yarsani without loss of material (Primary Dx); Dental caries 01/18/2025 11:00 AM EST Office Visit [facility] [address] [place] [address] Murillo, Penny Subgingival dental calculus (Primary Dx); Dental plaque 12/13/2024 11:00 AM EDT Office Visit [facility] [address] [place] [address] Murillo, Penny Dental calculus (Primary Dx); Dental plaque from Last 3 Months Social History Tobacco Use Types Packs/Day Years Used Date Smoking Tobacco: Never Smokeless Tobacco: Never Tobacco Cessation:Counseling Given: Not Answered Alcohol Use Standard Drinks/Week Comments Never 0 (1 standard drink = 0.6 oz pur e alcohol) Alcohol Answer Date Recorded How often do you have a drink containing alcohol ? 0 02/22/2025 Average Number of Drinks Not on file 025 Frequency of Binge Drinking Not on file 02/07 Sex and Gender Information Value Date Recorded Sex Assigned at Male 01/07/2022 10:20 AM EDT Legal Sex Male 10:20 AM EDT Gender Identity Male 01/07/2022 10:20 AM EDT Sexual Orientation Straight 01/07/2022 10 :20 AM EDT Last Filed Vital Signs Vital Sign Reading Time Taken Comments Blood Pressure 130/74 02/22/2025 11:44 AM EST Pulse 68 09/20/2024 1:27 PM EDT Temperature - - Respiratory Rate - - Oxygen Saturation - - Inhaled Oxygen Concentration - - Weight - - Height - - Body Mass Index - - Plan of Treatment Upcoming Encounters Date Type Department Care Team (Late st Contact Info) Description 03/14/2025 1:00 PM EST Office Visit [facility] [address] [place], [place] [phone] 04/11/2025 9:00 AM EST Office Visit [facility] [address] [place], [place] [phone] Geraldo Gotti, DMD [address] [place] [address] 07/19/2025 9:30 AM EDT Office Visit [facility] [address] [place] [address] Penny Murillo Health Maintenance Due Date Last Done Comments CT Colonography 1975 Colonoscopy 1975 Colorectal Cancer Screening 1975 Depression Screening 1975 FIT DNA/Cologuard 1975 FIT 1975 FOBT 1975 HIV Screening 1975 Lipid Panel 1975 SDOH Screening 1975 Sigmoidoscopy 1975 Disability Screening 1975 Family Planning (PISQ) 1990 Hepatitis C Screening 1993 Hepatitis B Vaccines (1 of 3 - 19+ 3-dose series) 1994 Pneumococcal Vaccine: Pediatrics (0 to 5 Years) and At-Risk Patients (6 to 49) Years (1 of 2 - PCV) 1994 Dental Oral Exam 07/16/2024 01/16/2024, 12/14/2021 Dental Prophylaxis 07/16/2024 01/16/2024, 10/09/2022 COVID-19 Vaccine (1 - 2024-2 6 season) 2024 Influenza Vaccine (#1) 2024 12/14/2018 Dental X-Ray: Bitewings 01/16/2025 01/16/20 24, 10/09/2022, 12/14/2021 Zoster Vaccines (1 of 2) 2025 Alcohol/Substance Use Screening 02/22/2026 02/22/2025 Tobacco Screening 02/22/2026 02/22/2025 Dental X-Ray: Full Mouth 01/16/2027 024, 05/24/2020 [...] patient's age to complete this topic Meningococcal B Vaccine Aged Out No l onger eligible based on patient's age to complete [...] PRESENTATION, DETAILED AND EXTENSIVE TREATMENT PLANNING Routine 02/22/2025 11:30 AM EST INTRAORAL - PERIAPICAL FIRST RADIOGRAPHIC IMAGE Routine 02/22/2025 11:30 AM EST LIMITED ORAL EVALUATION - PROBLEM FOCUSED Routine 02/22/2025 11:30 AM EST CASE PRESENTATION, DETAILED AND EXTENSIVE TREATMENT PLANNING Routine 01/18/2025 11:00 AM EST ORAL HYGIENE INSTRUCTIONS Routine 01/18/2025 11:00 AM EST Subgingival dental calculus Dental plaque LR PERIODONTAL SCALING AND ROOT PLANING - 1 TO 3 TEETH PER QUADRANT Routine 01/18/2025 11:00 AM EST Subgingival dental calculus Dental plaque UR PERIODONTAL SCALING AND ROOT PLANING - 1 TO 3 TEETH PER QUADRANT Routine 01/18/2025 11:00 AM EST Subgingival dental calculus Dental plaque CASE PRESENTATION, DETAILED AND EXTENSIVE TREATMENT PLANNING Routine 12/13/2024 11:00 AM EDT ORAL HYGIENE INSTRUCTIONS Routine 12/13/2024 11:00 AM EDT Dental calculus Dental plaque LR PERIODONTAL SCALING AND ROOT PLANING - 1 TO 3 TEETH PER QUADRANT Routine 12/13/2024 11:00 AM EDT Dental calculus Dental plaque UR PERIODONTAL SCALING AND ROOT PLANING - 1 TO 3 TEETH PER QUADRANT Routine 12/13/2024 11:00 AM EDT Dental calculus Dental plaque PROPHYLAXIS - ADULT Routine 01/16/2024 1 :00 PM EST Dental calculus Dental plaque Tartar deposits on teeth INTRAORAL - COMPLETE SERIES OF RADIOGRAPHIC IMAGES Routine 01/16/2024 1:00 PM EST PERIODIC ORAL EVALUATION - ESTABLISHED PATIENT Routine 01/16/2024 1:00 PM EST from Last 3 Months or Most Recently Relevant to Health Maintenance Insurance [facility] MEDICAID STAND ADULT
--- OUTSIDE RECORDS SUMMARY | 2025-02-28 15:51 | XMS_ITS | Encounter Summary ---
Author Organization [facility] [employer] [facility] Address [address] [facility] [address] [place] [address] Care Team Providers Care Ice Cream Van Vendor Name Role Phone Unavailable Primary Care Provider Unavailabl e Encounter Details Date Type Department Care Team (Late st Contact Info) Description 05/10/2022 Abstract [facility] [address] [place] [address] Geraldo Gotti DMD [address] [place] [address] Social History Tobacco Use Types Packs/Day Years [...] Encounters Date Type Department Care Team (Late Contact Info) Description 03/14/2025 1:00 PM EST Office Visit [facility] [address] [place], [place] [phone] 04/11/2025 9:00 AM EST Office Visit [facility] [address] [place] [address] Geraldo Gotti, ANA [address] [place] [address] 07/19/2025 9:30 AM EDT Office Visit [facility] [address] [place] [address] Penny Murillo documented as of this encounter Visit Diagnoses Not on filedocumented in this encounter
--- OUTSIDE RECORDS SUMMARY | 2025-02-28 15:51 | XMS_ITS | Encounter Summary ---
Author Organization [employer] Address [address] [facility] [address] [place] [address] Care Team Providers Care Bell Cleaner Name Role Phone Unavailable Primary Care Provider Unavailabl e Reason for Visit * Reason Onset Date Comments crown appt 09/24/2022 Encounter Details Date Type Department Care Team (Late st Contact Info) Description 09/24/2022 Telephone [facility] [address] [place] [address] Geraldo Gotti, [facility] [address] [place] [address] crown appt Social History Tobacco Use Types [...] documented in this encounter Plan of Treatment Upcoming Encounters Date Type Department Care Team (Late st Contact Info) Description 03/14/2025 1:00 PM EST Office Visit [facility] [address] [place] [address] 04/11/2025 9:00 AM EST Office Visit [facility] [address] [place], [place] [phone] Geraldo Gotti, DMD [address] [place] [address] 07/19/2025 9:30 AM EDT Office Visit [facility] [address] [facility] [place] [address] Penny Murillo documented as of this encounter Visit Diagnoses Not on filedocumented in this encounter
--- OUTSIDE RECORDS SUMMARY | 2025-02-28 15:51 | XMS_ITS | Encounter Summary ---
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 Embossing Press Operator Molded Goods Name Role Phone Unavailable Primary Care Provider Unavailabl e Encounter Details Date Type Department Care Team (Latest Contact Info) Description 12/14/2021 Abstract [facility] CONVERSIONS Dental, Provider, DDS Social History [...] Description 03/14/2025 1:00 PM EST Office Visit [facility] [address] [place] [address] 04/11/2025 9:00 AM EST Office Visit [facility] ADULT [facility] [address] [place] [address] Geraldo Gotti DMD [address] [place] [address] 07/19/2025 9:30 AM EDT Office Visit [facility]ULT [facility] [address] [place] [address] Penny Murillo documented as of this encounter Visit Diagnoses Not on filedocumented in this encounter
--- OUTSIDE RECORDS SUMMARY | 2025-02-28 15:51 | XMS_ITS | Encounter Summary ---
Author Organization [facility] [employer] [facility] Address [address] [facility] [address] [place] [address] Care Team Providers Care Spare Hand Carding Name Role Phone Unavailable Primary Care Provider Unavailabl e Encounter Details Date Type Department Care Team (Latest Contact Info) Description 06/15/2020 Abstract [facility] CONVERSIONS Dental, Provider, DDS Social History Tobacco [...] Description 03/14/2025 1:00 PM EST Office Visit [facility] [address] [place] [address] 04/11/2025 9:00 AM EST Office Visit [facility]ULT [facility] [address] [place] [address] Geraldo Gotti DMD [address] [place] [address] 07/19/2025 9:30 AM EDT Office Visit [facility]ULT [facility] [address] [place] [address] Penny Murillo documented as of this encounter Visit Diagnoses Not on filedocumented in this encounter
== END 2025-02-28 12:43 | disposition home or self-care (01) ==
LOC: HO.XRAY 12:42
PROVIDERS: PCP Internal Medicine; Visit Provider Nurse Practitioner Family
DX: N20.0 Calculus of kidney (principal)
CPT/HCPCS: 74018

== ENCOUNTER → 2025-02-28 12:46 | Outpatient (BNV) | payer OTHER, SELFPAY | PROVIDERS: PCP Internal Medicine; Visit Provider Radiology Diagnostic Radiology | DX: K59.00 Constipation, unspecified (principal) | CPT/HCPCS: 74018 ==

== ENCOUNTER 2025-03-07 09:17 | Outpatient (REF) | payer OTHER, SELFPAY ==
--- NOTE | ~2025-03-07 | XR_ITS ---
EXAMINATION: XR LUMBOSACRAL SPINE CLINICAL INFORMATION: M54.50 - Low back pain, unspecified COMPARISON: 06/10/2024, 03/25/2024, 10/30/2017. TECHNIQUE: Three views of the lumbosacral spine. FINDINGS: There is no scoliosis, there is normal lordosis. There is no fracture, compression deformity, or suspicious bone lesion. There is a 2 mm degenerative retrolisthesis of L2 on L3. There is otherwise normal alignment without subluxation. Moderate disc degeneration present at L2-3, and milder degeneration present at L5-S1. Remainder the intervertebral discs appear preserved. There is normal facet alignment bilaterally. Mild degenerative facet changes present diffusely. Compared with 06/10/2024, there has been no significant interval change. The prevertebral and paravertebral soft tissues appear normal. XR/XR lumbar spine 2-3V IMPRESSION: Stable degenerative changes as detailed. No significant change from 06/10/2024. Electronically signed by: Gurdeep Lang MD 03/07/2025 10:52 AM ROSS
== END 2025-03-07 09:18 | disposition home or self-care (01) ==
LOC: HO.XRAY 09:17
PROVIDERS: PCP Internal Medicine; Visit Provider Student in an Organized Health Care Education/Training Program
DX: M54.50 Low back pain, unspecified (principal)
CPT/HCPCS: 72100; 99212

== ENCOUNTER → 2025-03-07 09:54 | Outpatient (BNV) | payer OTHER, SELFPAY | PROVIDERS: PCP Internal Medicine; Visit Provider Radiology Diagnostic Radiology | DX: M51.360 Other intervertebral disc degeneration, lumbar region with discogenic back pain only (principal) | CPT/HCPCS: 72100 ==